=== PATIENT | female | born 1945 | race Two or more races ===

== ENCOUNTER → 2017-07-11 | Outpatient (CLI) | payer MEDICARE, MEDICAID ==
--- NOTE | 2017-07-11 15:27 | REP ---
Chest two views HISTORY: Dyspnea Comparison: 03/27/2007 The lungs are clear. The heart is upper limits of normal in size. The pulmonary vasculature is normal in appearance. Degenerative change is present in the thoracic spine. IMPRESSION: No acute disease. Signed by Gurmeet Cuadra MD 07/11/2017 03:18 P
== END ==
LOC: M LRY 14:22
PROVIDERS: ATTEND Nurse Practitioner Family
DX: R06.09 Other forms of dyspnea (principal)
CPT/HCPCS: 71020; 80048; 82948; 85025; 94640; G0463

== ENCOUNTER → 2017-07-11 | Outpatient (REF) | payer MEDICARE, MEDICAID ==
[2017-07-11 20:52] LABS: BASO % 0.4 % (0.0-1.0); EOS # 0.3 10^3/uL (0.0-0.50); IMMATURE GRANULOCYTE % 0.1 % (0-0); LYMPH # 1.9 10^3/uL (1.5-4.5); LYMPH % 24.4 % (24.0-44.0); MEAN CORPUSCULAR HEMOGLOBIN 32.4 pg (27.0-33.0); MEAN CORPUSCULAR VOLUME 95.2 fl (80.0-96.0); MONO # 0.7 10^3/uL (0.0-0.8); MONO % 9.1 % (0.0-5.0); NEUTROPHILS # 4.8 10^3/uL (1.8-7.7); PLATELET COUNT, AUTOMATED 283 10^3/uL (150-450); RED CELL DISTRIBUTION WIDTH 13.7 % (11.5-14.5); WHITE BLOOD COUNT 7.7 10^3/uL (4.0-10.0)
[2017-07-11 21:24] LABS: ANION GAP 6 MEQ/L (8-16); BLOOD UREA NITROGEN 14 MG/DL (7-18); CALCIUM LEVEL 9.1 MG/DL (8.8-10.2); CARBON DIOXIDE LEVEL 31 MEQ/L (21-32); CHLORIDE LEVEL 94 MEQ/L (98-107); CREATININE FOR GFR 0.67 MG/DL (0.55-1.02); GLOMERULAR FILTRATION RATE > 60.0 (>39); GLUCOSE, FASTING 92 MG/DL (83-110); POTASSIUM SERUM 4.5 MEQ/L (3.5-5.1); SODIUM LEVEL 131 MEQ/L (136-145)
== END ==
LOC: M SFHCLERA 15:35
PROVIDERS: ATTEND Nurse Practitioner Family
DX: R21 Rash and other nonspecific skin eruption (principal)

== ENCOUNTER → 2017-07-25 | Outpatient (REF) ==
[2017-07-25 10:32] LABS: MEAN CORPUSCULAR HEMOGLOBIN 32.2 pg (27.0-33.0); MEAN CORPUSCULAR HGB CONC 34.2 g/dl (32.0-36.5); MEAN CORPUSCULAR VOLUME 94.3 fl (80.0-96.0); PLATELET COUNT, AUTOMATED 307 10^3/uL (150-450); RED CELL DISTRIBUTION WIDTH 14.1 % (11.5-14.5); WHITE BLOOD COUNT 9.6 10^3/uL (4.0-10.0)
[2017-07-25 10:45] LABS: ANION GAP 10 MEQ/L (8-16); BLOOD UREA NITROGEN 38 MG/DL (7-18); CALCIUM LEVEL 8.3 MG/DL (8.8-10.2); CARBON DIOXIDE LEVEL 26 MEQ/L (21-32); CHLORIDE LEVEL 96 MEQ/L (98-107); CREATININE FOR GFR 0.94 MG/DL (0.55-1.02); GLOMERULAR FILTRATION RATE > 60.0 (>39); GLUCOSE, FASTING 113 MG/DL (83-110); POTASSIUM SERUM 4.6 MEQ/L (3.5-5.1); SODIUM LEVEL 132 MEQ/L (136-145)
== END ==
PROVIDERS: ATTEND Internal Medicine
DX: J18.9 Pneumonia, unspecified organism (principal)

== ENCOUNTER → 2017-07-26 | Outpatient (REF) ==
--- NOTE | 2017-07-26 18:40 | REP ---
CHEST, TWO VIEWS: Two views of the chest are performed and compared to prior studies, most recent of which is 07/12/2017. There is no acute infiltrate or pulmonary edema. The heart is not enlarged. Mediastinal silhouette is unchanged. There are degenerative changes of the spine. IMPRESSION: No evidence of acute infiltrate. Signed by Chip King MD 07/27/2017 08:27 P
== END ==
PROVIDERS: ATTEND Internal Medicine
DX: J18.9 Pneumonia, unspecified organism (principal)

== ENCOUNTER → 2017-07-27 | Outpatient (REF) ==
[2017-07-27 12:11] LABS: CALCIUM LEVEL 8.7 MG/DL (8.8-10.2); CREATININE FOR GFR 1.05 MG/DL (0.55-1.02); GLOMERULAR FILTRATION RATE 54.7 (>39); POTASSIUM SERUM 4.6 MEQ/L (3.5-5.1)
== END ==
PROVIDERS: ATTEND Internal Medicine
DX: I50.9 Heart failure, unspecified (principal)

== ENCOUNTER → 2017-08-02 | Outpatient (REF) | DX: I50.9 Heart failure, unspecified (principal); Z53.9 Procedure and treatment not carried out, unspecified reason ==

== ENCOUNTER 2021-03-28 07:21 | Inpatient (IN) | payer MEDICARE, MEDICAID ==
[~2021-03-28] VITALS: Ht 165.1 cm; Wt 101.8 kg
[2021-03-28] MEDS ORDERED: amLODIPine 5 MG TAB PO ONE (08:00)
[2021-03-28 08:17] LABS: HEMATOCRIT 35.6 % (36.0-47.0); HEMOGLOBIN 12.9 g/dl (12.0-15.5); MEAN CORPUSCULAR HEMOGLOBIN 33.2 pg (27.0-33.0); MEAN CORPUSCULAR HGB CONC 36.2 g/dl (32.0-36.5); MEAN CORPUSCULAR VOLUME 91.5 fl (80.0-96.0); PLATELET COUNT, AUTOMATED 281 10^3/uL (150-450); RED BLOOD COUNT 3.89 10^6/uL (4.00-5.40); WHITE BLOOD COUNT 8.5 10^3/uL (4.0-10.0)
[2021-03-28] MEDS ORDERED: NEOM1SUS14 OS (08:19)
[2021-03-28] MEDS ORDERED: ASPI81TA26 PO (08:19)
[2021-03-28] MEDS ORDERED: METO1TAB33 PO (08:19)
[2021-03-28] MEDS ORDERED: NYST1POW9 TOP (08:19)
[2021-03-28] MEDS ORDERED: MYRB50TA PO (08:19)
[2021-03-28] MEDS ORDERED: TOVI8TAB PO (08:19)
[2021-03-28] MEDS ORDERED: AMLO1TAB25 PO (08:19)
[2021-03-28] MEDS ORDERED: ROPI1TAB3 PO (08:19)
[2021-03-28] MEDS ORDERED: DEME300T12 PO (08:19)
[2021-03-28] MEDS ORDERED: VITMTA PO (08:19)
[2021-03-28] MEDS ORDERED: CARB1TAB20 PO (08:19)
[2021-03-28] MEDS ORDERED: SODI1TAB6 PO (08:19)
[2021-03-28] MEDS ORDERED: LOSA100T50 PO (08:19)
[2021-03-28] MEDS ORDERED: JANU100T PO (08:19)
[2021-03-28] MEDS ORDERED: XALA0.007 OU (08:19)
[2021-03-28] MEDS ORDERED: GLYB2.5T7 PO (08:19)
[2021-03-28] MEDS ORDERED: PRED10TA2 PO (08:19)
[2021-03-28] MEDS ORDERED: SYNT150T PO (08:19)
[2021-03-28] MEDS ORDERED: ACET1TAB55 PO (08:19)
[2021-03-28] MEDS ORDERED: COLA100C5 PO (08:19)
[2021-03-28] MEDS ORDERED: ZIPR60CA11 PO (08:19)
[2021-03-28] MEDS ORDERED: METF10004 PO (08:19)
[2021-03-28] MEDS ORDERED: FLOV50AE INH (08:19)
[2021-03-28] MEDS ORDERED: HOME MED LIST COMPLETE! XX SCH (08:25)
[2021-03-28 08:51] LABS: ACETAMINOPHEN LEVEL 5.1 UG/ML (10.0-30.0); ALBUMIN 3.1 GM/DL (3.2-5.2); ALT/SGPT 40 U/L (12-78); BILIRUBIN,DIRECT 0.2 MG/DL (0.0-0.2); BILIRUBIN,TOTAL 0.4 MG/DL (0.2-1.0); BLOOD UREA NITROGEN 11 MG/DL (7-18); CALCIUM LEVEL 8.6 MG/DL (8.8-10.2); CARBAMAZEPINE (TEGRETOL) LEVEL 6.4 UG/ML (4.0-10.0); CARBON DIOXIDE LEVEL 26 MEQ/L (21-32); CHLORIDE LEVEL 91 MEQ/L (98-107); CREATININE FOR GFR 0.73 MG/DL (0.55-1.30); ETHYL ALCOHOL (ETHANOL) 0.003 % (0.000-0.010); GLOMERULAR FILTRATION RATE > 60.0 (>39); GLUCOSE, FASTING 212 MG/DL (70-100); POTASSIUM SERUM 4.6 MEQ/L (3.5-5.1); RSV AMPLIFICATION NEGATIVE (NEGATIVE); SALICYLATE LEVEL < 1.7 MG/DL (5.0-30.0); SODIUM LEVEL 124 MEQ/L (136-145); TOTAL PROTEIN 6.7 GM/DL (6.4-8.2)
[2021-03-28 10:24] LABS: FREE T4 1.38 NG/DL (0.76-1.46)
[2021-03-28 10:41] LABS: AMPHETAMINES LEVEL URINE NEGATIVE (NEGATIVE); BARBITURATES URINE NEGATIVE (NEGATIVE); BENZODIAZEPINES URINE NEGATIVE (NEGATIVE); CANNABINOIDS URINE NEGATIVE (NEGATIVE); COCAINE METABOLITE URINE NEGATIVE (NEGATIVE); CREATININE,RANDOM URINE 32.1 MG/DL; METHADONE URINE NEGATIVE (NEGATIVE); OPIATES URINE NEGATIVE (NEGATIVE); PHENCYCLIDINE URINE NEGATIVE (NEGATIVE)
[2021-03-28 11:07] LABS: OSMOLALITY SERUM 260 MOSM/KG (280-301)
--- NOTE | 2021-03-28 13:37 | MHIPNPDOC ---
[facility] Progress Note Progress Note DATE OF SERVICE: 03/28/21 HISTORY: PSA contact regarding admission for this patient. 75-year-old female with a history of bipolar depression, who presented after reportedly attempting to slit wrists with a razor. No lacerations were found which patient attributes to being unable to pop the covers on her razor and access to blades directly. She told staff at her assisted living facility about this attempt and she was brought to the ER. Patient is on the extensive list of medications for heart disease, she is also on ziprasidone and Tegretol for management of her bipolar disorder. She had apparently stopped taking medications for a few days prior to this, which is resulted in elevated blood pressure. This responded to a one- time dose of amlodipine given by the ED, and she has been agreeable to take further medications moving forward. Reviewed hyponatremia with Dr. Crews, ED physician. Hyponatremia appears to be chronic, based upon osmolality and other urine labs is most likely related to ongoing administration of Tegretol. Focus of this admission should likely be on switching her Tegretol for a another a gent, which may be less prone to development of hyponatremia. Vital Signs Vital Signs Date Time Temp Pulse Resp B/P (MAP) Pulse Ox O2 Delivery O2 Flow Rate FiO2 03/28/21 13:20 96.8 75 20 170/77 (108) 94 Room Air Laboratory Data 24H Labs Laboratory Tests 2 03/28/21 07:51: Nucleated Red Blood Cells % (auto) 0.0, Urine Osmolality 358, Urine Random Creatinine 32.1, Urine Random Sodium 66, Anion Gap 7L, Glomerular Filtration Rate > 60.0, Osmolality 260L, Calcium Level 8.6L, Total Bilirubin 0.4, Direct Bilirubin 0.2, Aspartate Amino Transf (AST/SGOT) 29, Alanine Aminotransferase (ALT/SGPT) 40, Alkaline Phosphatase 99, Total Protein 6.7, Albumin 3.1L, Albumin/Globulin Ratio 0.9L, Thyroid Stimulating Hormone (TSH) 1.290, Free Thyroxine 1.38, Salicylates Level < 1.7L, Urine Opiates Screen NEGATIVE, Urine Methadone Screen NEGATIVE, Acetaminophen Level 5.1L, Urine Barbiturates Screen NEGATIVE, Carbamazepine (Tegretol) Level 6.4, Urine Phencyclidine Screen NEGATIVE, Urine Amphetamines Screen NEGATIVE, Urine Benzodiazepines Screen NEGATIVE, Urine Cocaine Metabolite Screen NEGATIVE, Urine Cannabinoids Screen NEGATIVE, Ethyl Alcohol Level 0.003, Coronavirus (COVID-19)(PCR) NEGATIVE, Influ selin Type A (RT-PCR) NEGATIVE, Influenza Type B (RT-PCR) NEGATIVE, Respiratory Syncytial Virus (PCR) NEGATIVE 03/28/21 12:39: Bedside Glucose (Misc Panel) 197H CBC/BMP Laboratory Tests 03/28/21 07:51 Current Medications Current Medications Medications (Trade) Dose Ordered Sig/Abigail Route PRN Reason Start Time Stop Time Status Last Admin Dose Admin Home Med (Home Med List Complete!) ASDIRECTED XX 03/28/21 08:25 03/28/21 08:25 DC Allergies Coded Allergies: Sulfa (Sulfonamide Antibiotics) (Verified Allergy, Mild, hives, 03/28/21) MADAN GORDON MD Mar 28, 2021 13:37
[2021-03-28] MEDS ORDERED: MOM 30ML SUSPENSION UDC PO PRN (14:15)
[2021-03-28] MEDS ORDERED: ACETAMINOPHEN TAB 650MG DOSE (2X325MG) PO PRN (14:15)
[2021-03-28] MEDS ORDERED: traZODone 50 MG TAB PO PRN (14:15)
[2021-03-28] MEDS ORDERED: MAALOX 30 ML SUSP *UDC PO PRN (14:15)
[2021-03-28 16:45] VITALS: BP 179/110
[2021-03-28] MEDS ORDERED: MAXITROL OPHTH SUSP 5 ML OS SCH (17:00)
[2021-03-28] MEDS: rOPINIRole 1MG TAB PO SCH (21:27)
[2021-03-28] MEDS: amLODIPine 5 MG TAB PO SCH (21:27)
[2021-03-28] MEDS: LATANOPROST 0.005% OPHTH SOLN 2.5 ML OU SCH (21:27)
[2021-03-28] MEDS: metFORMIN (GLUCOPHAGE) 1000 MG TABLET PO SCH (21:27)
[2021-03-28] MEDS: NYSTATIN 100,000 UNITS/GM TOPICAL PWD 15 GM TOP SCH (21:27)
[2021-03-28] MEDS: DOCUSATE SODIUM 100MG CAPSULE PO SCH (21:27)
[2021-03-28] MEDS: SODIUM CHLORIDE 1 GM TAB PO SCH (21:28)
[2021-03-28] MEDS: carBAMazepine 200MG TABLET PO SCH (21:28)
[2021-03-28] MEDS: ZIPRASIDONE 20MG CAPSULE (GEODON) PO SCH (21:28)
[2021-03-28] MEDS: carBAMazepine 100MG *1/2* TABLET PO SCH (21:28)
[2021-03-28] MEDS: ACETAMINOPHEN TAB 650MG DOSE (2X325MG) PO SCH (21:29)
[2021-03-28] MEDS: FLUTICASONE HFA 44 MCG 10.6GM INHALER (FLOVENT) INH SCH (21:29)
[2021-03-29 05:50] VITALS: BP 164/94
[2021-03-29] MEDS: LEVOTHYROXINE 150MCG TABLET (0.15MG) PO SCH (06:24)
[2021-03-29] MEDS: NYSTATIN 100,000 UNITS/GM TOPICAL PWD 15 GM TOP SCH ×2 (09:00→21:56)
[2021-03-29] MEDS ORDERED: METOPROLOL SUCC (TopROL XL) 100MG *XL* TAB PO SCH (09:00)
[2021-03-29] MEDS: carBAMazepine 100MG *1/2* TABLET PO SCH (09:39)
[2021-03-29] MEDS: SITagliptin 50 MG TAB (JANUVIA) PO SCH (09:39)
[2021-03-29] MEDS: predniSONE 10 MG TAB PO SCH (09:39)
[2021-03-29] MEDS: DOCUSATE SODIUM 100MG CAPSULE PO SCH ×2 (09:40→21:56)
[2021-03-29] MEDS: ASPIRIN 81MG ENTERIC TABLET PO SCH (09:40)
[2021-03-29] MEDS: MULTIVITAMINS/MINERALS THERAP 1 TAB PO SCH (09:40)
[2021-03-29] MEDS: LOSARTAN 50MG TABLET PO SCH (09:40)
[2021-03-29] MEDS: carBAMazepine 200MG TABLET PO SCH ×2 (09:41→21:59)
[2021-03-29] MEDS: amLODIPine 5 MG TAB PO SCH ×2 (09:41→21:56)
[2021-03-29] MEDS: SODIUM CHLORIDE 1 GM TAB PO SCH ×2 (09:44→18:07)
[2021-03-29] MEDS: FLUTICASONE HFA 44 MCG 10.6GM INHALER (FLOVENT) INH SCH ×2 (09:44→19:58)
[2021-03-29] MEDS: metFORMIN (GLUCOPHAGE) 1000 MG TABLET PO SCH ×2 (09:45→18:07)
[2021-03-29] MEDS: ZIPRASIDONE 20MG CAPSULE (GEODON) PO SCH ×2 (09:45→18:06)
--- NOTE | 2021-03-29 09:56 | HPEPDOC ---
[facility] Medical History & Physical Date of Admission Mar 28, 2021 Date of Service: Mar 29, 2021 Other Provider Derik Holland MD, psychiatry Attending Physician: CHITRA CHAHAL DO History and Physical CHIEF COMPLAINT: Bipolar depression HISTORY OF PRESENT ILLNESS: Patient is a 75-year-old female who was admitted into the inpatient mental health unit for a history of bipolar depression who was reportedly attempting to slit her wrist with a razor. No lacerations were found and the patient attributes that to be unable to pop her covers off her razor and axis plates directly. Patient told staff that her assisted living facility with this attempt and she was brought to the emergency department. Patient is on extensive list of medications for heart disease as well as ziprasidone and Tegretol for management of bipolar disorder. She apparently stopped taking medications for a few days prior to this which resulted in elevated blood pressure. Patient was found to have hyponatremia on initial laboratories in the emergency department however, the hyponatremia appears to be chronic in nature. Patient states that the patient has had 2 loose stools this morning that were brown and nonbloody. Patient does not complain of any other pain. Patient was having normal bowel movements prior today. Patient is otherwise doing well at this time. PAST MEDICAL HISTORY: 1. Diabetes mellitus. 2. Hypothyroidism. 3. Hypertension. 4. Hyperlipidemia 5. Bipolar disorder PAST SURGICAL HISTORY: 1. Cholecystectomy in the remote past. SOCIAL HISTORY: Patient does not smoke cigarettes and gave up drinking alcohol greater than 15 years ago. Patient does denies any illicit drug use. Patient lives at [facility] FAMILY HISTORY: Mother of renal failure according to chart review ALLERGIES: Please see below. REVIEW OF SYSTEMS: General: Patient denies fevers HEENT: Patient denies headaches Cardiovascular: Patient denies chest pain Respiratory: Patient denies shortness of breath, cough GI: Patient reports 2 loose stools earlier today but denies abdominal pain, nausea, or vomiting : Patient denies increased frequency or pain with urination Extremities: Patient denies swelling or pain in extremities Neurological: Patient denies numbness or tingling in legs Skin: Patient reports a new rash on her upper extremities which is itchy. Hematologic: Patient denies any easy bruising. Lymphatic: Patient denies any lumps lumps or bumps in neck, axilla, or groin HOME MEDICATIONS: Please see below. PHYSICAL EXAMINATION: VITAL SIGNS: Temperature 98.0, pulse 92, respiratory rate 20, blood pressure 155/81, pulse oximetry 93% on room air. General: Alert and oriented female patient who was laying in bed when I walked in the room. Patient did not appear to be in any acute distress. Patient did become anxious about taking her medications As she had not taken them today. HEENT: Normocephalic, atraumatic, moist mucous membranes. Neck: No lymphadenopathy or thyromegaly Cardiac: Regular rate and rhythm, no murmurs, normal S1, normal S2 Pulm: Clear to auscultation bilaterally. No wheezes, rhonchi, rales Abd: Nondistended, nontender to palpation, normal bowel sounds Ext: No edema bilateral lower extremities Skin. Patient has a papular rash that appears healed with excoriations on her upper extremities. LABORATORY DATA: See below. IMAGING: No imaging has been performed MICROBIOLOGY: Please see below. ASSESSMENT: Patient is a 75-year-old female with a history of bipolar depressive disorder who was brought to the emergency department after stating she was attempting to cut her wrist with a razor blade. Patient was found to be hyponatremic and was admitted into inpatient mental health unit as the possible cause of her chronic hyponatremia was thought to be Tegretol. . PLAN: 1. Bipolar depression. Continue treatment per psychiatry. Patient will need to be switched from Tegretol to a different agent as this is most likely the cause of her chronic hyponatremia. Management per psychiatry. 2. Hyponatremia. This appears chronic in nature. Patient will be given salt tablets and have a fluid restriction of 2000 cc/day. We will continue to check the patient's sodium level on a daily basis for the first few days and if this stabilizes, checks can be every other day during the patient's hospitalization. 3. Diarrhea. Patient had 2 episodes of loose stool today. We will continue to monitor this. This may be secondary to her not eating very much yesterday. 4. Rash. This appears to be a possible contact dermatitis or dry skin dermatitis. Hydrocortisone will be ordered. 5. Type 2 diabetes. Continue home medications. 6. Hypertension. Continue home medications. 7. Hyperlipidemia. Continue home medications. 8. Hypothyroidism. Continue home medications. 9. DVT prophylaxis: Early ambulation 10. CODE STATUS: Full code Disposition: Patient discharged per psychiatry. Hospitalist will follow for the first few days until sodium level stabilizes. Vital Signs Vital Signs Date Time Temp Pulse Resp B/P (MAP) Pulse Ox O2 Delivery O2 Flow Rate FiO2 03/29/21 05:50 98.0 92 20 164/94 (117) 03/28/21 16:45 93 Room Air Laboratory Data Labs 24H Laboratory Tests 2 03/28/21 12:39: Bedside Glucose (Misc Panel) 197H 03/29/21 02:30: Bedside Glucose (Misc Panel) 146H Home Medications Scheduled Acetaminophen (Acetaminophen) 325 Mg Tablet, 650 MG PO QHS Amlodipine Besylate (Amlodipine Besylate) 10 Mg Tablet, 5 MG PO BID Aspirin (Aspirin EC) 81 Mg Tablet.dr, 81 MG PO DAILY Carbamazepine (Carbamazepine) 200 Mg Tablet, 300 MG PO BID Demeclocycline HCl (Demeclocycline HCl) 300 Mg Tablet, 300 MG PO BID Docusate Sodium (Colace) 100 Mg Capsule, 100 MG PO BID @ 1700, 2000 Fesoterodine Fumarate (Toviaz) 8 Mg Tab.er.24h, 8 MG PO DAILY Fluticasone Propionate (Flovent Diskus) 50 Mcg Blst.w.dev, 1 PUFF INH BID Glyburide (Glyburide) 2.5 Mg Tablet, 2.5 MG PO DAILY Latanoprost (Xalatan) 0.005% 2.5ML Drops, 1 DROP OU QHS Levothyroxine Sodium (Synthroid) 150 Mcg Tablet, 150 MCG PO DAILY Losartan Potassium (Losartan Potassium) 100 Mg Tablet, 100 MG PO DAILY Metformin HCl (Metformin HCl) 1,000 Mg Tablet, 1,000 MG PO BID Metoprolol Succinate (Metoprolol Succinate) 100 Mg Tab.er.24h, 100 MG PO DAILY Mirabegron (Myrbetriq) 50 Mg Tab.er.24h, 50 MG PO QHS Multivitamins (Thera M Plus Tablet) 1 Each Tablet, 1 TAB PO DAILY Neomycin/Polymyxin B/Dexametha (Lgouxe-Utxsl-Yrzjfhah Eye Drop) 5 Ml Drops.susp, 1 DROP OS QID STOP MEDICATION END OF DAY ON 03/28/21 Nystatin (Nystatin Powder) 15 Gm Powder, 1 APPLIC TOP BID APPLY TO RASH ON GROIN AND UNDER BREASTS Prednisone (Prednisone) 10 Mg Tablet, 20 MG PO DAILY 20MG FOR TWO DAYS THEN 10MG FOR TWO DAYS Ropinirole HCl (Ropinirole HCl) 1 Mg Tablet, 1 MG PO QHS Sitagliptin Phosphate (Januvia) 100 Mg Tablet, 100 MG PO DAILY Sodium Chloride (Sodium Chloride) 1 Gm Tablet, 1 GM PO BIDWM Ziprasidone HCl (Ziprasidone HCl) 60 Mg Capsule, 60 MG PO BIDWM Allergies Coded Allergies: Sulfa (Sulfonamide Antibiotics) (Verified Allergy, Mild, hives, 03/28/21) A-FIB/CHADSVASC A-FIB History Current/History of A-Fib/PAF?: No CHITRA CHAHAL DO Mar 29, 2021 09:56
[2021-03-29] MEDS ORDERED: ANUSOL HC CREAM 30GM TOP PRN (10:00)
[2021-03-29 12:52] LABS: BLOOD UREA NITROGEN 12 MG/DL (7-18); CALCIUM LEVEL 8.8 MG/DL (8.8-10.2); CARBON DIOXIDE LEVEL 26 MEQ/L (21-32); CHLORIDE LEVEL 91 MEQ/L (98-107); CREATININE FOR GFR 0.83 MG/DL (0.55-1.30); GLOMERULAR FILTRATION RATE > 60.0 (>39); GLUCOSE, FASTING 121 MG/DL (70-100); POTASSIUM SERUM 4.6 MEQ/L (3.5-5.1); SODIUM LEVEL 125 MEQ/L (136-145)
[2021-03-29] MEDS ORDERED: carBAMazepine 200MG TABLET PO SCH (16:00)
--- NOTE | 2021-03-29 18:07 | MHHPEPDOC ---
General Date Of Admission: Mar 28, 2021 Legal Status: 9.39 Chief Complaint "I came in very depressed" History of Present Illness HISTORY OF THE PRESENT ILLNESS: Patient is a 75 -year-old Other, female, who has a past hisoty of bipolar disoder (reportedly diagnosed in the ), depression who presents on a 9.39 from her [facility] after she reports (confirmed on chart review) she wanted to kill herself by cutting her wrists with razor blades, but could not remove the safety covers. Reports struggling with worsening suicidal thoughts for the last few weeks, due to having to socialize in her [facility], states that "I got used to used to being alone", it is been so hard to see the new people there "as most of the people there have already ". On interview she is very labile, tearful, constricted, reports chronic low mood, anhedonia, low energy, poor concentration, lack of sleep, hopelessness, helplessness, worthlessness and passive suicidal thoughts which are vague. States she planned the day before getting razor blades to end her life, " I thought this was it". Reports she has had depression her whole life and has had several past attempts, reports at age 15 she tried to drink "Witch Concetta as a suicide attempt". States she feels her current medications are not helping her adequately her stressor for her worsening mood, was a lack of socialization during COVID with some of the friends who had passed and having to go to medical appointments on her own which has been lonely. Does report Kulwinder has helped with her moods. She was educated about hyponatremia and plan to decrease her carbamazepine, initially she was hesitant with this plan due to concerns " I am afraid things will get worse because the carbamazepine really helps my depression". Denies jan or ever having periods where she was not sleeping for days, but does describe periods of highs and lows in her life, although mostly depressed, with the highest being "periods where I was overly silly and it was normal". Denies any drug use. Patient is alert, oriented, coherent, mentation intact, does have some delusions guilt. Denies any homicidal ideations. Psychiatric Review of Systems Depression (2 or more weeks): depressed mood, anhedonia, insomnia/hypersomnia (fragmented sleep), feelings of excess/guilt, feelings of worthlesness, decreased energy, difficulty concentrating, psychomotor changes, suicidal thoughts Jan (4 or more days of): denies Psychosis: delusions (guilty) PTSD: denies Anxiety: gen/non-specific anxiety, situational anxiety, stressor related anxiety Anxiety/ 6 months or more of: difficulty concentrating, sleep disturbance Past Psychiatric History Previous Psychiatric Diagnosis: bipolar, Major depressive disorder Previous Psychiatric Admissions: >10, ~3x at [place] in, last [facility] January 2008, [place] [facility] Suicide Attempts: multiple reported Psychiatric Follow-up: [facility] (annie Farley) Psychiatric medications: multiple past antipsychotics, antidepressants, anti anxiety, arrive on carbamazepin 300 mg BID, Geodon 60 mg BID Past Medical History Medical Problems hypothyroidism, DM, glaucoma Head Injury: No Seizures: No Hospitalizations: Yes Family Medical/Psychiatric HX Medical Problems unclear Addiction History denies Social History Childhood: Grew up in [place], 7 siblings, 3rd oldest, Abuse/Trauma: Denies any Current Living Situation: [facility] Education: grade 10, says went back and achieved GED, 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 Employment: Retired Social Support: few Legal: Denies Marital: not Mental Status Examination General Appearance: unkempt, hospital scubs/clothing, other (Tattoo R wrist, bruises) Build: overweight Demeanor: withdrawn Eye Contact: poor Activity: anxious Behavior: cooperative, loss of interests, anhedonia, withdrawn Speech: clear, slow, low in volume, non-spontaneous Mood: depressed Mood very depressed Affect: constricted, labile, other (tearful) Thought Process: logical/linear Thought Content (Delusions): other (delusions of guilt) Thought Content (Other): coherent Thought Content (Aggressive): none reported Perception (Hallucinations): none reported Perception (Other): none reported Cognition (Impairment of): none reported Oriented: Awake, Alert, Oriented times three Insight: fair Judgment: Poor Psychosis: Denies Diagnoses Bipolar I disorder per history R/O MDD, Persistent depressive disorder, neurocognitive disorder A-FIB/CHADSVASC A-FIB History Current/History of A-Fib/PAF?: No Current PO Anticoag Therapy: No Age/Risk Factor Scoring CHADSVASC: CHADSVASC Response (Comments) Value Age Risk Factor Age 65-74 years old 1 Gender Risk Factor Female 1 Hx of CHF No 0 Hx of HTN Yes 1 Hx of Stroke/TIA/or VTE No 0 Hx of Diabetes Yes 1 Hx of Vascular Disease No 0 Total 4 Treatment Treatment ordered: NONE Reason Anticoagulant not given: Other (defer to hospitalist team) Other reason anticoagulant not: deferred to hospitalist team Assessment Patient is a 75-year-old woman who presents for [facility] after reporting suicidal ideation with plan and interrupted attempt to cut wrists with razor blades. Reports lifelong history of depression and bipolar disorder diagnosed in the 1980s. Also presented medically with hyponatremia in the 120s coordination of care was obtained with hospitalist team, to fluid restrict, provide salt tablets monitor, metabolic profile every 2 days until sodium stabilizes patient did not appear to be delirious, or psychotic on interv iew. Plan per psychiatry team to slowly taper off carbamazepine as hyponatremia likely result of side effects of carbamazepine. Patient in agreement to stabilize depression, sent for safety and work with treatment team for safety planning. Initial Treatment Plan 1. Patient was admitted on a [9.39] status. 2. Complete history was obtained. 3. With patients permission, family will be contacted and database will be expanded. 4. Patients medication regimen will be reviewed and changed accordingly. 5. Patient will be provided with protected environment. 6. Patient will be treated with individual, group, and milieu therapies. 7. Patient will receive supportive psych-education. 8. Discharge planning will commence immediately. 9. Outpatient follow-up treatment will be strongly recommended. 10. The initial treatment plan will focus initially on: * Depression. * Risk for suicide. ESTIMATED LENGTH OF STAY: - DAYS. TIME SPENT COUNSELING AND COORDINATING INITIAL CARE: minutes. Tobacco Cessation Screen If Patient is a Smoker no Tobacco Cessation Tx Ordered?: Yes Complete/Results docum. Vital Signs Vital Signs Date Time Temp Pulse Resp B/P (MAP) Pulse Ox O2 Delivery O2 Flow Rate FiO2 03/29/21 09:40 155/81 03/29/21 05:50 98.0 92 20 03/28/21 16:45 93 Room Air Laboratory Data 24H Labs Laboratory Tests 2 03/29/21 02:30: Bedside Glucose (Misc Panel) 146H 03/29/21 11:35: Anion Gap 8, Glomerular Filtration Rate > 60.0, Calcium Level 8.8 CBC/BMP Laboratory Tests 03/29/21 11:35 Medications Scheduled Acetaminophen (Acetaminophen) 325 Mg Tablet, 650 MG PO QHS, (Reported) Amlodipine Besylate (Amlodipine Besylate) 10 Mg Tablet, 5 MG PO BID, (Reported) Aspirin (Aspirin EC) 81 Mg Tablet.dr, 81 MG PO DAILY, (Reported) Carbamazepine (Carbamazepine) 200 Mg Tablet, 300 MG PO BID, (Reported) Demeclocycline HCl (Demeclocycline HCl) 300 Mg Tablet, 300 MG PO BID, (Reported) Docusate Sodium (Colace) 100 Mg Capsule, 100 MG PO BID, (Reported) @ 1700, 2000 Fesoterodine Fumarate (Toviaz) 8 Mg Tab.er.24h, 8 MG PO DAILY, (Reported) Fluticasone Propionate (Flovent Diskus) 50 Mcg Blst.w.dev, 1 PUFF INH BID, (Reported) Glyburide (Glyburide) 2.5 Mg Tablet, 2.5 MG PO DAILY, (Reported) Latanoprost (Xalatan) 0.005% 2.5ML Drops, 1 DROP OU QHS, (Reported) Levothyroxine Sodium (Synthroid) 150 Mcg Tablet, 150 MCG PO DAILY, (Reported) Losartan Potassium (Losartan Potassium) 100 Mg Tablet, 100 MG PO DAILY, (Reported) Metformin HCl (Metformin HCl) 1,000 Mg Tablet, 1,000 MG PO BID, (Reported) Metoprolol Succinate (Metoprolol Succinate) 100 Mg Tab.er.24h, 100 MG PO DAILY, (Reported) Mirabegron (Myrbetriq) 50 Mg Tab.er.24h, 50 MG PO QHS, (Reported) Multivitamins (Thera M Plus Tablet) 1 Each Tablet, 1 TAB PO DAILY, (Reported) Neomycin/Polymyxin B/Dexametha (Bblzvd-Okrro-Thtcvtek Eye Drop) 5 Ml Drops.susp, 1 DROP OS QID, (Reported) STOP MEDICATION END OF DAY ON 03/28/21 Nystatin (Nystatin Powder) 15 Gm Powder, 1 APPLIC TOP BID, (Reported) APPLY TO RASH ON GROIN AND UNDER BREASTS Prednisone (Prednisone) 10 Mg Tablet, 20 MG PO DAILY, (Reported) 20MG FOR TWO DAYS THEN 10MG FOR TWO DAYS Ropinirole HCl (Ropinirole HCl) 1 Mg Tablet, 1 MG PO QHS, (Reported) Sitagliptin Phosphate (Januvia) 100 Mg Tablet, 100 MG PO DAILY, (Reported) Sodium Chloride (Sodium Chloride) 1 Gm Tablet, 1 GM PO BIDWM, (Reported) Ziprasidone HCl (Ziprasidone HCl) 60 Mg Capsule, 60 MG PO BIDWM, (Reported) Allergies Coded Allergies: Sulfa (Sulfonamide Antibiotics) (Verified Allergy, Mild, hives, 03/28/21) YAHAIRA KENNEDY MD Mar 29, 2021 18:07
[2021-03-29 19:24] VITALS: BP 150/83
[2021-03-29] MEDS: rOPINIRole 1MG TAB PO SCH (21:56)
[2021-03-29] MEDS: LATANOPROST 0.005% OPHTH SOLN 2.5 ML OU SCH (21:56)
[2021-03-29] MEDS: ACETAMINOPHEN TAB 650MG DOSE (2X325MG) PO SCH (21:56)
[2021-03-30] MEDS: LEVOTHYROXINE 150MCG TABLET (0.15MG) PO SCH ×2 (05:43→05:55)
[2021-03-30 06:34] VITALS: BP 149/69
[2021-03-30 07:07] LABS: BLOOD UREA NITROGEN 14 MG/DL (7-18); CALCIUM LEVEL 8.4 MG/DL (8.8-10.2); CARBON DIOXIDE LEVEL 27 MEQ/L (21-32); CHLORIDE LEVEL 96 MEQ/L (98-107); CREATININE FOR GFR 0.71 MG/DL (0.55-1.30); GLOMERULAR FILTRATION RATE > 60.0 (>39); GLUCOSE, FASTING 172 MG/DL (70-100); POTASSIUM SERUM 4.3 MEQ/L (3.5-5.1); SODIUM LEVEL 129 MEQ/L (136-145)
[2021-03-30] MEDS: ZIPRASIDONE 20MG CAPSULE (GEODON) PO SCH ×2 (11:59→18:40)
[2021-03-30] MEDS: metFORMIN (GLUCOPHAGE) 1000 MG TABLET PO SCH ×2 (12:00→18:40)
[2021-03-30] MEDS: FLUTICASONE HFA 44 MCG 10.6GM INHALER (FLOVENT) INH SCH ×2 (12:01→20:54)
[2021-03-30] MEDS: SODIUM CHLORIDE 1 GM TAB PO SCH ×2 (12:01→18:39)
[2021-03-30] MEDS: DOCUSATE SODIUM 100MG CAPSULE PO SCH ×2 (12:02→20:55)
[2021-03-30] MEDS: LOSARTAN 50MG TABLET PO SCH (12:02)
[2021-03-30] MEDS: predniSONE 10 MG TAB PO SCH (12:03)
[2021-03-30] MEDS: ASPIRIN 81MG ENTERIC TABLET PO SCH (12:03)
[2021-03-30] MEDS: SITagliptin 50 MG TAB (JANUVIA) PO SCH (12:04)
[2021-03-30] MEDS: carBAMazepine 200MG TABLET PO SCH (12:08)
[2021-03-30] MEDS: MULTIVITAMINS/MINERALS THERAP 1 TAB PO SCH (12:08)
[2021-03-30] MEDS: NYSTATIN 100,000 UNITS/GM TOPICAL PWD 15 GM TOP SCH ×2 (12:10→20:54)
[2021-03-30] MEDS ORDERED: **hydrALAZINE HCL** 25 MG TAB PO ONE (13:00)
[2021-03-30 18:24] VITALS: BP 132/68
--- NOTE | 2021-03-30 18:26 | MHIPNPDOC ---
[facility] Progress Note Progress Note DATE OF SERVICE: 03/30/21 HISTORY: Patient is a 75 -year-old Other, female, who has a past hisoty of bipolar disoder (reportedly diagnosed in the ), depression who presents on a 9.39 from her [facility] after she reports (confirmed on chart review) she wanted to kill herself by cutting her wrists with razor blades, but could not remove the safety covers. Reports struggling with worsening suicidal thoughts for the last few weeks, due to having to socialize in her [facility], states that "I got used to used to being alone", it is been so hard to see the new people there "as most of the people there have already ". On interview she is very labile, tearful, constricted, reports chronic low mood, anhedonia, low energy, poor concentration, lack of sleep, hopelessness, helplessness, worthlessness and passive suicidal thoughts which are vague. States she planned the day before getting razor blades to end her life, " I thought this was it". Reports she has had depression her whole life and has had several past attempts, reports at age 15 she tried to drink "Witch Concetta as a suicide attempt". States she feels her current medications are not helping her adequately her stressor for her worsening mood, was a lack of socialization during COVID with some of the friends who had passed and having to go to medical appointments on her own which has been lonely. Does report Kulwinder has helped with her moods. She was educated about hyponatremia and plan to decrease her carbamazepine, initially aileen sanchez was hesitant with this plan due to concerns " I am afraid things will get worse because the carbamazepine really helps my depression". Denies jan or ever having periods where she was not sleeping for days, but does describe periods of highs and lows in her life, although mostly depressed, with the highest being "periods where I was overly silly and it was normal". Denies any drug use. Patient is alert, oriented, coherent, mentation intact, does have some delusions guilt. Denies any homicidal ideations. Interval: Patient was seen in her room, lying in bed with nursing at bedside. Endorsed high anxiety since tapering down her carpamazepine, vitals re-asses and wnl at 12:02 per chart review, pulse ox was hovering around 92-93, reports hx COPD. Endorsed severe depression and anxiety symptoms, stating when asked about suicidality "I don't know", appeared to be having an anxiety attack, lorazepam 0.5 q8H ordered, but patient has not been taking. Discussed alternative medications for mood stabilization including lamictal, patient was hesitant, but will consider, has concerns for weight gain. Carbamazepine titrated down to 100 mg po BID due to hyponatremia. VITAL SIGNS: See below. NEW TEST RESULTS: Na trended up to 129 CURRENT MEDICATIONS: See below. MENTAL STATUS EXAMINATION: General Appearance: unkempt, hospital scubs/clothing, other (Tattoo R wrist, bruises), avoidant eye contact Build: overweight Demeanor: withdrawn Eye Contact: poor Activity: anxious Behavior: cooperative, loss of interests, anhedonia, withdrawn Speech: clear, slow, low in volume, non-spontaneous, thought blocking Mood: depressed Mood very depressed Affect: constricted, labile, tearful Thought Process: logical/linear Thought Content (Delusions): other (delusions of guilt) Thought Content (Other): coherent, vague suicidal ideations Thought Content (Aggressive): none reported Perception (Hallucinations): none reported Perception (Other): none reported Cognition (Impairment of): none reported, unable to assess today due to high anxiety and limited cooperation with questioning Oriented: A/ox3 Insight: fair, improving Judgment: Poor Psychosis: Denies DIAGNOSES: 1. Bipolar I disorder per history 2. R/O MDD, Persistent depressive disorder, neurocognitive disorder ASSESSMENT: Anxiety attack. Continues to be severely depressed, ambivalent about returning to [facility] at times, at other times worried won't be able to return. MANAGEMENT PLAN: Was seen by medicine for elevated BP in the AM, which stabilized. Continue ziprasidone 60 mg BID, continue carbamazepine taper for hyponatremia side effect, education about alternative mood stabilizer, patient considering, started prn lorazepam 0.5 mg prn for breakthrough anxiety. Continue coordination or care for return to [facility] with discharge planners. TIME SPENT: 30 minutes. Vital Signs Vital Signs Date Time Temp Pulse Resp B/P (MAP) Pulse Ox O2 Delivery O2 Flow Rate FiO2 03/30/21 12:02 149/69 03/30/21 06:34 96.9 77 20 93 Room Air Laboratory Data 24H Labs Laboratory Tests 2 03/30/21 06:19: Anion Gap 6L, Glomerular Filtration Rate > 60.0, Calcium Level 8.4L CBC/BMP Laboratory Tests 03/30/21 06:19 Current Medications Current Medications Medications (Trade) Dose Ordered Sig/Abigail Route PRN Reason Start Time Stop Time Status Last Admin Dose Admin Acetaminophen (Tylenol Tab) 650 mg Q6HP PRN PO HEADACHE or MILD DISCOMFORT 03/28/21 14:15 Acetaminophen (Tylenol Tab) 650 mg QHS PO 03/28/21 21:00 03/29/21 21:56 Al Hydrox/Mg Hydrox/Simethicone (Mylanta) 30 ml Q4HP PRN PO HEARTBURN/INDIGESTION 03/28/21 14:15 Amlodipine Besylate (Norvasc) 5 mg BID PO 03/28/21 21:00 03/30/21 12:13 DC 03/29/21 21:56 Amlodipine Besylate (Norvasc) 5 mg BIDWM PO 03/30/21 18:00 Aspirin (Ecotrin) 81 mg DAILY PO 03/29/21 09:00 03/30/21 12:03 Carbamazepine (TEGretol) 100 mg BID PO 03/28/21 21:00 03/29/21 14:59 DC 03/29/21 09:39 Carbamazepine (TEGretol) 100 mg BID PO 03/30/21 21:00 Carbamazepine (TEGretol) 200 mg BID PO 03/28/21 21:00 03/29/21 14:59 DC 03/29/21 09:41 Carbamazepine (TEGretol) 200 mg BID PO 03/29/21 21:00 03/30/21 13:53 DC 03/30/21 12:08 Carbamazepine (TEGretol) 200 mg TID PO 03/29/21 16:00 03/29/21 15:03 DC Docusate Sodium (Colace) 100 mg BID PO 03/28/21 21:00 03/30/21 12:02 Fluticasone Propionate (Flovent Hfa 44 Mcg) 2 puff RBID INH 03/28/21 20:00 03/30/21 12:01 Glyburide (Diabeta, Micronase) 2.5 mg DAILY@0800 PO 03/29/21 08:00 03/30/21 11:59 Home Med (Home Med List Complete!) ASDIRECTED XX 03/28/21 08:25 03/28/21 08:25 DC Hydrocortisone (Proctosol Hc) Apply to arms BID PRN TOP ITCHING 03/29/21 10:00 Latanoprost (Xalatan 0.005% Op Soln) 1 drop QHS OU 03/28/21 21:00 03/29/21 21:56 Levothyroxine Sodium (Synthroid) 150 mcg DAILY@0600 PO 03/29/21 06:00 03/29/21 06:24 Lorazepam (Ativan) 0.5 mg Q8HP PRN PO SEVERE ANXIETY 03/30/21 13:50 Losartan Potassium (Cozaar) 100 mg DAILY PO 03/29/21 09:00 03/30/21 12:02 Magnesium Hydroxide (Milk Of Magnesia) 30 ml DAILYPRN PRN PO CONSTIPATION 03/28/21 14:15 Metformin HCl (Glucophage) 1,000 mg BIDWM PO 03/28/21 18:00 03/30/21 12:00 Metoprolol Succinate (TopROL XL) 100 mg DAILY PO 03/29/21 09:00 03/30/21 12:29 DC 03/29/21 09:41 Metoprolol Succinate (TopROL XL) 100 mg DAILY@0800 PO 03/31/21 08:00 Multivitamins (Theragram-M) 1 tab DAILY PO 03/29/21 09:00 03/30/21 12:08 Neomycin/ Polymyxin/ Dexamethasone (Maxitrol) 1 drop QID OS 03/28/21 17:00 03/28/21 16:46 DC Nystatin (Mycostatin Powder, Nystop) 1 dose BID TOP 03/28/21 21:00 03/30/21 12:10 Oxybutynin Chloride (Ditropan Xl) 5 mg QHS PO 03/30/21 21:00 Prednisone (Deltasone) 10 mg Taper DAILY PO 03/29/21 09:00 04/01/21 08:59 03/30/21 12:03 Ropinirole HCl (Requip) 1 mg QHS PO 03/28/21 21:00 03/29/21 21:56 Sitagliptin Phosphate (Januvia) 100 mg DAILY PO 03/29/21 09:00 03/30/21 12:04 Sodium Chloride (Sodium Chloride) 1 gm BIDWM PO 03/28/21 18:00 03/30/21 12:01 Trazodone HCl (Desyrel) 50 mg QHSP PRN PO INSOMNIA 03/28/21 14:15 Ziprasidone (Geodon) 60 mg BIDWM PO 03/28/21 18:00 03/30/21 11:59 Allergies Coded Allergies: Sulfa (Sulfonamide Antibiotics) (Verified Allergy, Mild, hives, 03/28/21) YAHAIRA KENNEDY MD Mar 30, 2021 18:26
[2021-03-30] MEDS: amLODIPine 5 MG TAB PO SCH (18:40)
--- NOTE | 2021-03-30 20:01 | ECGEPIP ---
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
[2021-03-30] MEDS: carBAMazepine 100MG *1/2* TABLET PO SCH (20:54)
[2021-03-30] MEDS: LATANOPROST 0.005% OPHTH SOLN 2.5 ML OU SCH (20:54)
[2021-03-30] MEDS: oxyBUTYnin *DITROPAN XL* 5 MG TABCR PO SCH (20:55)
[2021-03-30] MEDS: rOPINIRole 1MG TAB PO SCH (20:55)
[2021-03-30] MEDS: ACETAMINOPHEN TAB 650MG DOSE (2X325MG) PO SCH (20:55)
[2021-03-31] MEDS: LEVOTHYROXINE 150MCG TABLET (0.15MG) PO SCH (06:00)
[2021-03-31 07:06] VITALS: BP 170/100
[2021-03-31 07:56] LABS: BLOOD UREA NITROGEN 10 MG/DL (7-18); CALCIUM LEVEL 8.7 MG/DL (8.8-10.2); CARBON DIOXIDE LEVEL 26 MEQ/L (21-32); CHLORIDE LEVEL 99 MEQ/L (98-107); CREATININE FOR GFR 0.75 MG/DL (0.55-1.30); GLOMERULAR FILTRATION RATE > 60.0 (>39); GLUCOSE, FASTING 181 MG/DL (70-100); POTASSIUM SERUM 4.3 MEQ/L (3.5-5.1); SODIUM LEVEL 131 MEQ/L (136-145)
[2021-03-31] MEDS: FLUTICASONE HFA 44 MCG 10.6GM INHALER (FLOVENT) INH SCH ×2 (08:34→21:18)
[2021-03-31] MEDS: amLODIPine 5 MG TAB PO SCH ×2 (08:35→18:09)
[2021-03-31] MEDS: metFORMIN (GLUCOPHAGE) 1000 MG TABLET PO SCH ×2 (08:36→18:08)
[2021-03-31] MEDS: ZIPRASIDONE 20MG CAPSULE (GEODON) PO SCH ×2 (08:36→18:08)
[2021-03-31] MEDS: SODIUM CHLORIDE 1 GM TAB PO SCH ×2 (08:37→18:08)
[2021-03-31] MEDS: METOPROLOL SUCC (TopROL XL) 100MG *XL* TAB PO SCH (08:38)
[2021-03-31] MEDS: NYSTATIN 100,000 UNITS/GM TOPICAL PWD 15 GM TOP SCH ×4 (09:00→21:17)
[2021-03-31] MEDS: SITagliptin 50 MG TAB (JANUVIA) PO SCH (09:11)
[2021-03-31] MEDS: MULTIVITAMINS/MINERALS THERAP 1 TAB PO SCH (09:12)
[2021-03-31] MEDS: ASPIRIN 81MG ENTERIC TABLET PO SCH (09:12)
[2021-03-31] MEDS: LOSARTAN 50MG TABLET PO SCH (09:13)
[2021-03-31] MEDS: DOCUSATE SODIUM 100MG CAPSULE PO SCH ×2 (09:13→21:17)
[2021-03-31] MEDS: predniSONE 10 MG TAB PO SCH (09:14)
[2021-03-31] MEDS: carBAMazepine 100MG *1/2* TABLET PO SCH (09:14)
[2021-03-31 12:03] VITALS: BP 142/90
--- NOTE | 2021-03-31 12:56 | MHIPNPDOC ---
[facility] Progress Note Progress Note DATE OF SERVICE: 03/31/21 HISTORY: Patient is a 75 -year-old Other, female, who has a past hisoty of bipolar disoder (reportedly diagnosed in the ), depression who presents on a 9.39 from her [facility] after she reports (confirmed on chart review) she wanted to kill herself by cutting her wrists with razor blades, but could not remove the safety covers. Reports struggling with worsening suicidal thoughts for the last few weeks, due to having to socialize in her senior care, states that "I got used to used to being alone", it is been so hard to see the new people there "as most of the people there have already ". On interview she is very labile, tearful, constricted, reports chronic low mood, anhedonia, low energy, poor concentration, lack of sleep, hopelessness, helplessness, worthlessness and passive suicidal thoughts which are vague. States she planned the day before getting razor blades to end her life, " I thought this was it". Reports she has had depression her whole life and has had several past attempts, reports at age 15 she tried to drink "Witch Concetta as a suicide attempt". States she feels her current medications are not helping her adequately her stressor for her worsening mood, was a lack of socialization during COVID with some of the friends who had passed and having to go to medical appointments on her own which has been lonely. Does report Kulwinder has helped with her moods. She was educated about hyponatremia and plan to decrease her carbamazepine, initially aileen sanchez was hesitant with this plan due to concerns " I am afraid things will get worse because the carbamazepine really helps my depression". Denies jan or ever having periods where she was not sleeping for days, but does describe periods of highs and lows in her life, although mostly depressed, with the highest being "periods where I was overly silly and it was normal". Denies any drug use. Patient is alert, oriented, coherent, mentation intact, does have some delusions guilt. Denies any homicidal ideations. Interval: Charts reviewed, sodium continues to trend up, blood pressure only mildly elevated, patient in no acute distress, no acute physical complaints. Continues to have concerns that she will not be able to return to her [facility], despite supportive interaction and reassurance. States "why would they take me back, they do not want me back", despite multiple attempts to explain the situation. She continues to be tearful and labile but less so than previous days despite tapering down her carbamazepine. Plan to continue tapering down her carbamazepine. Denies AVH. VITAL SIGNS: See below. NEW TEST RESULTS: Na trended up to 131 CURRENT MEDICATIONS: See below. MENTAL STATUS EXAMINATION: General Appearance: unkempt, hospital scubs/clothing, other (Tattoo R wrist, bruises), avoidant eye contact Build: overweight Demeanor: withdrawn Eye Contact: poor Activity: anxious Behavior: cooperative, loss of interests, anhedonia, withdrawn Speech: clear, slow, low in volume, non-spontaneous, thought blocking Mood: depressed Mood Still very depressed Affect: constricted, labile, tearful, but less so than previous days Thought Process: logical/linear Thought Content (Delusions): other (delusions of guilt) Thought Content (Other): coherent, vague suicidal ideations Thought Content (Aggressive): none reported Perception (Hallucinations): none reported Perception (Other): none reported Cognition (Impairment of): none reported, unable to assess today due to high anxiety and limited cooperation with questioning Oriented: A/ox3 Insight: fair, improving Judgment: Poor Psychosis: Denies DIAGNOSES: 1. Bipolar I disorder, depressive episode 2. R/O MDD, Persistent depressive disorder, neurocognitive disorder ASSESSMENT: Severely depressed state, relatively unchanged from previous days despite taper down of carbamazepine, is now worried about not being able to return to [facility], with delusions of guilt. MANAGEMENT PLAN: Blood pressure is unremarkable apart from mild elevation. continue ziprasidone 60 mg BID, tapered down carbamazepine 250 mg twice daily, patient agreeable to starting low-dose Depakote possibly tomorrow, started prn lorazepam 0.5 mg prn for breakthrough anxiety. Continue coordination or care for return to [facility] with discharge planners. Medicated with nursing to ensure reassessment of blood pressure, as it was elevated previous days. TIME SPENT: 30 minutes. Vital Signs Vital Signs Date Time Temp Pulse Resp B/P (MAP) Pulse Ox O2 Delivery O2 Flow Rate FiO2 03/31/21 12:03 142/90 (107) 03/31/21 08:38 74 03/31/21 07:06 98.0 16 96 Room Air Laboratory Data 24H Labs Laboratory Tests 2 03/31/21 07:21: Anion Gap 6L, Glomerular Filtration Rate > 60.0, Calcium Level 8.7L CBC/BMP Laboratory Tests 03/31/21 07:21 Current Medications Current Medications Medications (Trade) Dose Ordered Sig/Abigail Route PRN Reason Start Time Stop Time Status Last Admin Dose Admin Acetaminophen (Tylenol Tab) 650 mg Q6HP PRN PO HEADACHE or MILD DISCOMFORT 03/28/21 14:15 Acetaminophen (Tylenol Tab) 650 mg QHS PO 03/28/21 21:00 03/30/21 20:55 Al Hydrox/Mg Hydrox/Simethicone (Mylanta) 30 ml Q4HP PRN PO HEARTBURN/INDIGESTION 03/28/21 14:15 Amlodipine Besylate (Norvasc) 5 mg BID PO 03/28/21 21:00 03/30/21 12:13 DC 03/29/21 21:56 Amlodipine Besylate (Norvasc) 5 mg BIDWM PO 03/30/21 18:00 03/31/21 08:35 Aspirin (Ecotrin) 81 mg DAILY PO 03/29/21 09:00 03/31/21 09:12 Carbamazepine (TEGretol) 100 mg BID PO 03/28/21 21:00 03/29/21 14:59 DC 03/29/21 09:39 Carbamazepine (TEGretol) 100 mg BID PO 03/30/21 21:00 03/31/21 09:14 Carbamazepine (TEGretol) 200 mg BID PO 03/28/21 21:00 03/29/21 14:59 DC 03/29/21 09:41 Carbamazepine (TEGretol) 200 mg BID PO 03/29/21 21:00 03/30/21 13:53 DC 03/30/21 12:08 Carbamazepine (TEGretol) 200 mg TID PO 03/29/21 16:00 03/29/21 15:03 DC Docusate Sodium (Colace) 100 mg BID PO 03/28/21 21:00 03/31/21 09:13 Fluticasone Propionate (Flovent Hfa 44 Mcg) 2 puff RBID INH 03/28/21 20:00 03/31/21 08:34 Glyburide (Diabeta, Micronase) 2.5 mg DAILY@0800 PO 03/29/21 08:00 03/31/21 08:35 Home Med (Home Med List Complete!) ASDIRECTED XX 03/28/21 08:25 03/28/21 08:25 DC Hydrocortisone (Proctosol Hc) Apply to arms BID PRN TOP ITCHING 03/29/21 10:00 Latanoprost (Xalatan 0.005% Op Soln) 1 drop QHS OU 03/28/21 21:00 03/30/21 20:54 Levothyroxine Sodium (Synthroid) 150 mcg DAILY@0600 PO 03/29/21 06:00 03/31/21 06:00 Lorazepam (Ativan) 0.5 mg Q8HP PRN PO SEVERE ANXIETY 03/30/21 13:50 Losartan Potassium (Cozaar) 100 mg DAILY PO 03/29/21 09:00 03/31/21 09:13 Magnesium Hydroxide (Milk Of Magnesia) 30 ml DAILYPRN PRN PO CONSTIPATION 03/28/21 14:15 Metformin HCl (Glucophage) 1,000 mg BIDWM PO 03/28/21 18:00 03/31/21 08:36 Metoprolol Succinate (TopROL XL) 100 mg DAILY PO 03/29/21 09:00 03/30/21 12:29 DC 03/29/21 09:41 Metoprolol Succinate (TopROL XL) 100 mg DAILY@0800 PO 03/31/21 08:00 03/31/21 08:38 Multivitamins (Theragram-M) 1 tab DAILY PO 03/29/21 09:00 03/31/21 09:12 Neomycin/ Polymyxin/ Dexamethasone (Maxitrol) 1 drop QID OS 03/28/21 17:00 03/28/21 16:46 DC Nystatin (Mycostatin Powder, Nystop) 1 dose BID TOP 03/28/21 21:00 03/30/21 20:54 Oxybutynin Chloride (Ditropan Xl) 5 mg QHS PO 03/30/21 21:00 03/30/21 20:55 Prednisone (Deltasone) 10 mg Taper DAILY PO 03/29/21 09:00 04/01/21 08:59 03/31/21 09:14 Ropinirole HCl (Requip) 1 mg QHS PO 03/28/21 21:00 03/30/21 20:55 Sitagliptin Phosphate (Januvia) 100 mg DAILY PO 03/29/21 09:00 03/31/21 09:11 Sodium Chloride (Sodium Chloride) 1 gm BIDWM PO 03/28/21 18:00 03/31/21 08:37 Trazodone HCl (Desyrel) 50 mg QHSP PRN PO INSOMNIA 03/28/21 14:15 Ziprasidone (Geodon) 60 mg BIDWM PO 03/28/21 18:00 03/31/21 08:36 Allergies Coded Allergies: Sulfa (Sulfonamide Antibiotics) (Verified Allergy, Mild, hives, 03/28/21) YAHAIRA KENNEDY MD Mar 31, 2021 12:55
[2021-03-31 18:04] VITALS: BP 150/82
[2021-03-31] MEDS: oxyBUTYnin *DITROPAN XL* 5 MG TABCR PO SCH (21:17)
[2021-03-31] MEDS: LATANOPROST 0.005% OPHTH SOLN 2.5 ML OU SCH (21:17)
[2021-03-31] MEDS: carBAMazepine 100MG 5ML SUSP ORAL SYRINGE *DRAW UP EXACT DOSE PO SCH (21:17)
[2021-03-31] MEDS: ACETAMINOPHEN TAB 650MG DOSE (2X325MG) PO SCH (21:18)
[2021-03-31] MEDS: rOPINIRole 1MG TAB PO SCH (21:18)
[2021-03-31] MEDS: LORazepam 0.5 MG TAB PO PRN (22:16)
[2021-04-01] MEDS: LEVOTHYROXINE 150MCG TABLET (0.15MG) PO SCH (05:41)
[2021-04-01 06:40] VITALS: BP 164/76
[2021-04-01] MEDS: ZIPRASIDONE 20MG CAPSULE (GEODON) PO SCH ×2 (08:00→17:44)
[2021-04-01] MEDS: metFORMIN (GLUCOPHAGE) 1000 MG TABLET PO SCH ×2 (08:00→17:44)
[2021-04-01] MEDS: METOPROLOL SUCC (TopROL XL) 100MG *XL* TAB PO SCH (08:00)
[2021-04-01] MEDS: SODIUM CHLORIDE 1 GM TAB PO SCH ×2 (08:00→17:45)
[2021-04-01 09:26] LABS: BLOOD UREA NITROGEN 15 MG/DL (7-18); CREATININE FOR GFR 0.82 MG/DL (0.55-1.30); GLUCOSE, FASTING 218 MG/DL (70-100)
[2021-04-01 09:27] LABS: CALCIUM LEVEL 9.1 MG/DL (8.8-10.2); CARBON DIOXIDE LEVEL 28 MEQ/L (21-32); CHLORIDE LEVEL 96 MEQ/L (98-107); GLOMERULAR FILTRATION RATE > 60.0 (>39); POTASSIUM SERUM 4.8 MEQ/L (3.5-5.1); SODIUM LEVEL 131 MEQ/L (136-145)
[2021-04-01] MEDS: DOCUSATE SODIUM 100MG CAPSULE PO SCH ×2 (09:52→21:12)
[2021-04-01] MEDS: FLUTICASONE HFA 44 MCG 10.6GM INHALER (FLOVENT) INH SCH ×2 (09:52→21:15)
[2021-04-01] MEDS: MULTIVITAMINS/MINERALS THERAP 1 TAB PO SCH (09:52)
[2021-04-01] MEDS: LOSARTAN 50MG TABLET PO SCH (09:53)
[2021-04-01] MEDS: carBAMazepine 100MG 5ML SUSP ORAL SYRINGE *DRAW UP EXACT DOSE PO SCH (09:54)
[2021-04-01] MEDS: NYSTATIN 100,000 UNITS/GM TOPICAL PWD 15 GM TOP SCH ×2 (10:02→21:00)
[2021-04-01] MEDS: amLODIPine 5 MG TAB PO SCH ×2 (10:02→17:44)
[2021-04-01] MEDS: SITagliptin 50 MG TAB (JANUVIA) PO SCH (10:03)
[2021-04-01] MEDS: ASPIRIN 81MG ENTERIC TABLET PO SCH (10:03)
[2021-04-01] MEDS ORDERED: ALBUTEROL 90 MCG/ACT 8GM HFA INHALER INH PRN (10:55)
--- NOTE | 2021-04-01 11:53 | MHIPNPDOC ---
[facility] Progress Note Progress Note DATE OF SERVICE: 04/01/21 HISTORY: Patient is a 75 -year-old Other, female, who has a past hisoty of bipolar disoder (reportedly diagnosed in the ), depression who presents on a 9.39 from her [facility] after she reports (confirmed on chart review) she wanted to kill herself by cutting her wrists with razor blades, but could not remove the safety covers. Reports struggling with worsening suicidal thoughts for the last few weeks, due to having to socialize in her [facility], states that "I got used to used to being alone", it is been so hard to see the new people there "as most of the people there have already ". On interview she is very labile, tearful, constricted, reports chronic low mood, anhedonia, low energy, poor concentration, lack of sleep, hopelessness, helplessness, worthlessness and passive suicidal thoughts which are vague. States she planned the day before getting razor blades to end her life, " I thought this was it". Reports she has had depression her whole life and has had several past attempts, reports at age 15 she tried to drink "Witch Concetta as a suicide attempt". States she feels her current medications are not helping her adequately her stressor for her worsening mood, was a lack of socialization during COVID with some of the friends who had passed and having to go to medical appointments on her own which has been lonely. Does report Kulwinder has helped with her moods. She was educated about hyponatremia and plan to decrease her carbamazepine, initially aileen sanchez was hesitant with this plan due to concerns " I am afraid things will get worse because the carbamazepine really helps my depression". Denies jan or ever having periods where she was not sleeping for days, but does describe periods of highs and lows in her life, although mostly depressed, with the highest being "periods where I was overly silly and it was normal". Denies any drug use. Patient is alert, oriented, coherent, mentation intact, does have some delusions guilt. Denies any homicidal ideations. Interval: Charts reviewed, sodium continues to be stable at 131. Patient was initially tearful and labile on interview, sat down with her and discussed some of the thoughts she may have it might affect her moods. Continues to feel nervous about returning to the assisted even though she wants to because it would be hard for her to meet the new residents. States she used to be her happy self with the carbamazepine and now that it is discontinued she feels less social. We discussed some coping strategies including motivational interviewing to allow for focusing on the positive and increasing engagement. Made aware carbamazepine will be discontinued today due to hyponatremia and a stat will start low-dose Depakote, was made aware of side effects and mechanism of action as a mood stabilizer to help her with lability and anxiety. Showed me her prior cards, and was encouraged by the hopefulness and looking them over. Shortly after leaving her room she was seen walking around the unit with her walker, per nursing which is more activity than previous days. Communicated to the hospitalist Dr. Velasco on if we can have someone evaluate for COPD due to low oxygen saturation on vital signs, 93 per nursing in the previous day. Does report a history of COPD, and having to clear her throat for phlegm. Had her stick her tongue out to evaluate for tardive dyskinesia, AIMS scoring was 0. denies AVH. VITAL SIGNS: See below. NEW TEST RESULTS: Na stable at 131 CURRENT MEDICATIONS: See below. MENTAL STATUS EXAMINATION: General Appearance: unkempt, hospital scubs/clothing, other (Tattoo R wrist, bruises), avoidant eye contact Build: overweight Demeanor: withdrawn Eye Contact: poor Activity: anxious Behavior: cooperative, loss of interests, anhedonia, withdrawn Speech: clear, slow, low in volume, non-spontaneous, thought blocking Mood: depressed Mood Still very depressed Affect: Dysthymic, but less so with engagement in conversation as it progressed, constricted, labile, tearful, but less so than previous days Thought Process: logical/linear Thought Content (Delusions): other (delusions of guilt) Thought Content (Other): coherent, continues to have vague suicidal ideations Thought Content (Aggressive): none reported Perception (Hallucinations): none reported Perception (Other): none reported Cognition (Impairment of): none reported Oriented: A/ox3 Insight: fair, improving Judgment: Poor, improving Psychosis: Denies DIAGNOSES: 1. Bipolar I disorder, depressive episode 2. R/O MDD, Persistent depressive disorder, neurocognitive disorder ASSESSMENT: Continues to be depressed, relatively unchanged from previous days despite taper down of carbamazepine, is now worried about not being able to return to [facility], with delusions of guilt. MANAGEMENT PLAN: Continued with brief CBT to help control for negative thoughts and associated moods.so that patient can work on identifying her distortions and challenging them. Continue ziprasidone 60 mg BID, d/c carbamazepine, start Depakote 250 mg daily, lfts 03/28 wnl, ordered A1c to assess for diabetes status, continue prn lorazepam 0.5 mg prn for breakthrough anxiety. Continue coordination or care for return to [facility] with discharge planners. Suggested nursing staff to engage in conversation to improve thoughts and hopefully mood, appears lack of engagement in [facility] may have contributed to mood symptoms discussion with patient. TIME SPENT: 40 minutes. Vital Signs Vital Signs Date Time Temp Pulse Resp B/P (MAP) Pulse Ox O2 Delivery O2 Flow Rate FiO2 04/01/21 10:02 98 140/100 04/01/21 06:40 98.1 20 95 Room Air Laboratory Data 24H Labs Laboratory Tests 2 04/01/21 08:47: Anion Gap 7L, Glomerular Filtration Rate > 60.0, Calcium Level 9.1 CBC/BMP Laboratory Tests 04/01/21 08:47 Current Medications Current Medications Medications (Trade) Dose Ordered Sig/Abigail Route PRN Reason Start Time Stop Time Status Last Admin Dose Admin Acetaminophen (Tylenol Tab) 650 mg Q6HP PRN PO HEADACHE or MILD DISCOMFORT 03/28/21 14:15 04/01/21 07:04 Acetaminophen (Tylenol Tab) 650 mg QHS PO 03/28/21 21:00 03/31/21 21:18 Al Hydrox/Mg Hydrox/Simethicone (Mylanta) 30 ml Q4HP PRN PO HEARTBURN/INDIGESTION 03/28/21 14:15 Albuterol Sulfate (Proventil, Ventolin Hfa) 2 puff Q4HP PRN INH SHORTNESS OF BREATH 04/01/21 10:55 Amlodipine Besylate (Norvasc) 5 mg BID PO 03/28/21 21:00 03/30/21 12:13 DC 03/29/21 21:56 Amlodipine Besylate (Norvasc) 5 mg BIDWM PO 03/30/21 18:00 04/01/21 10:02 Aspirin (Ecotrin) 81 mg DAILY PO 03/29/21 09:00 04/01/21 10:03 Carbamazepine (TEGretol SUSPENSION) 50 mg BID PO 03/31/21 21:00 04/01/21 09:54 Carbamazepine (TEGretol) 100 mg BID PO 03/28/21 21:00 03/29/21 14:59 DC 03/29/21 09:39 Carbamazepine (TEGretol) 100 mg BID PO 03/30/21 21:00 03/31/21 12:47 DC 03/31/21 09:14 Carbamazepine (TEGretol) 200 mg BID PO 03/28/21 21:00 03/29/21 14:59 DC 03/29/21 09:41 Carbamazepine (TEGretol) 200 mg BID PO 03/29/21 21:00 03/30/21 13:53 DC 03/30/21 12:08 Carbamazepine (TEGretol) 200 mg TID PO 03/29/21 16:00 03/29/21 15:03 DC Docusate Sodium (Colace) 100 mg BID PO 03/28/21 21:00 04/01/21 09:52 Fluticasone Propionate (Flovent Hfa 44 Mcg) 2 puff RBID INH 03/28/21 20:00 04/01/21 09:52 Glyburide (Diabeta, Micronase) 2.5 mg DAILY@0800 PO 03/29/21 08:00 04/01/21 10:08 Guaifenesin (Mucinex Tab Er) 600 mg BID PO 04/01/21 09:00 Home Med (Home Med List Complete!) ASDIRECTED XX 03/28/21 08:25 03/28/21 08:25 DC Hydrocortisone (Proctosol Hc) Apply to arms BID PRN TOP ITCHING 03/29/21 10:00 Latanoprost (Xalatan 0.005% Op Soln) 1 drop QHS OU 03/28/21 21:00 03/31/21 21:17 Levothyroxine Sodium (Synthroid) 150 mcg DAILY@0600 PO 03/29/21 06:00 04/01/21 05:41 Lorazepam (Ativan) 0.5 mg Q8HP PRN PO SEVERE ANXIETY 03/30/21 13:50 03/31/21 22:16 Losartan Potassium (Cozaar) 100 mg DAILY PO 03/29/21 09:00 04/01/21 09:53 Magnesium Hydroxide (Milk Of Magnesia) 30 ml DAILYPRN PRN PO CONSTIPATION 03/28/21 14:15 Metformin HCl (Glucophage) 1,000 mg BIDWM PO 03/28/21 18:00 04/01/21 08:00 Metoprolol Succinate (TopROL XL) 100 mg DAILY PO 03/29/21 09:00 03/30/21 12:29 DC 03/29/21 09:41 Metoprolol Succinate (TopROL XL) 100 mg DAILY@0800 PO 03/31/21 08:00 04/01/21 08:00 Multivitamins (Theragram-M) 1 tab DAILY PO 03/29/21 09:00 04/01/21 09:52 Neomycin/ Polymyxin/ Dexamethasone (Maxitrol) 1 drop QID OS 03/28/21 17:00 03/28/21 16:46 DC Nystatin (Mycostatin Powder, Nystop) 1 dose BID TOP 03/28/21 21:00 04/01/21 10:02 Oxybutynin Chloride (Ditropan Xl) 5 mg QHS PO 03/30/21 21:00 03/31/21 21:17 Prednisone (Deltasone) 10 mg Taper DAILY PO 03/29/21 09:00 04/01/21 08:59 DC 03/31/21 09:14 Ropinirole HCl (Requip) 1 mg QHS PO 03/28/21 21:00 03/31/21 21:18 Sitagliptin Phosphate (Januvia) 100 mg DAILY PO 03/29/21 09:00 04/01/21 10:03 Sodium Chloride (Sodium Chloride) 1 gm BIDWM PO 03/28/21 18:00 04/01/21 08:00 Tiotropium [place] (Spiriva Handihaler) 1 inhalation DAILY@08 INH 04/01/21 08:00 Trazodone HCl (Desyrel) 50 mg QHSP PRN PO INSOMNIA 03/28/21 14:15 Ziprasidone (Geodon) 60 mg BIDWM PO 03/28/21 18:00 04/01/21 08:00 Allergies Coded Allergies: Sulfa (Sulfonamide Antibiotics) (Verified Allergy, Mild, hives, 03/28/21) YAHAIRA KENNEDY MD Apr 01, 2021 11:53
[2021-04-01] MEDS: DIVALPROEX 250MG *ER* TAB PO SCH (12:03)
[2021-04-01] MEDS: TIOTROPIUM INHALER/CAPSULE (SPIRIVA) INH SCH (12:03)
[2021-04-01] MEDS: guaiFENesin ER 600 MG TAB PO SCH ×2 (12:03→21:16)
[2021-04-01 17:12] VITALS: BP 138/80
--- NOTE | 2021-04-01 19:54 | IPNPDOC ---
Subjective Date Seen The patient was seen on 04/01/21. Subjective Chief Complaint/HPI Patient was seen earlier in the day. She tells me that she used to have inhalers for COPD. Her PCP discontinued inhalers due to patient complaining of hyperactivity. Afterward realized that the hyperactivity was not due to any inhalers. Patient requested to be back on inhalers, but was not started on inhalers. Will start patient on albuterol as needed and Spiriva. Otherwise, patient also complained of phlegm. Started patient on guaifenesin On physical exam, patient did not have any wheezing. We will continue with albuterol as needed, Spiriva, and guaifenesin. Assessment /Plan Plan/VTE VTE Prophylaxis Ordered?: No (Ambulatory) VS, I&O, 24H, Fishbone Vital Signs/I&O Vital Signs Date Time Temp Pulse Resp B/P (MAP) Pulse Ox O2 Delivery O2 Flow Rate FiO2 04/01/21 17:44 82 138/80 04/01/21 17:12 98.1 16 04/01/21 06:40 95 Room Air Laboratory Data 24H LABS Laboratory Tests 2 04/01/21 08:47: Anion Gap 7L, Glomerular Filtration Rate > 60.0, Calcium Level 9.1 CBC/BMP Laboratory Tests 04/01/21 08:47 JOSSELINE KELLEY DO Apr 01, 2021 19:54
[2021-04-01] MEDS: ACETAMINOPHEN TAB 650MG DOSE (2X325MG) PO SCH (21:12)
[2021-04-01] MEDS: rOPINIRole 1MG TAB PO SCH (21:12)
[2021-04-01] MEDS: oxyBUTYnin *DITROPAN XL* 5 MG TABCR PO SCH (21:12)
[2021-04-01] MEDS: LATANOPROST 0.005% OPHTH SOLN 2.5 ML OU SCH (21:12)
[2021-04-02 05:33] VITALS: BP 160/80
[2021-04-02] MEDS: LEVOTHYROXINE 150MCG TABLET (0.15MG) PO SCH (05:48)
[2021-04-02] MEDS: METOPROLOL SUCC (TopROL XL) 100MG *XL* TAB PO SCH (08:48)
[2021-04-02] MEDS: metFORMIN (GLUCOPHAGE) 1000 MG TABLET PO SCH ×2 (08:48→17:35)
[2021-04-02] MEDS: TIOTROPIUM INHALER/CAPSULE (SPIRIVA) INH SCH (08:48)
[2021-04-02] MEDS: amLODIPine 5 MG TAB PO SCH ×2 (08:49→17:36)
[2021-04-02] MEDS: FLUTICASONE HFA 44 MCG 10.6GM INHALER (FLOVENT) INH SCH ×2 (08:49→20:30)
[2021-04-02] MEDS: ZIPRASIDONE 20MG CAPSULE (GEODON) PO SCH ×2 (08:49→17:36)
[2021-04-02] MEDS: SODIUM CHLORIDE 1 GM TAB PO SCH ×2 (08:49→17:35)
[2021-04-02] MEDS: NYSTATIN 100,000 UNITS/GM TOPICAL PWD 15 GM TOP SCH ×2 (09:00→20:27)
[2021-04-02] MEDS: DOCUSATE SODIUM 100MG CAPSULE PO SCH ×2 (10:20→20:30)
[2021-04-02] MEDS: SITagliptin 50 MG TAB (JANUVIA) PO SCH (10:21)
[2021-04-02] MEDS: MULTIVITAMINS/MINERALS THERAP 1 TAB PO SCH (10:21)
[2021-04-02] MEDS: DIVALPROEX 250MG *ER* TAB PO SCH (10:21)
[2021-04-02] MEDS: ASPIRIN 81MG ENTERIC TABLET PO SCH (10:22)
[2021-04-02] MEDS: LOSARTAN 50MG TABLET PO SCH (10:22)
[2021-04-02] MEDS: guaiFENesin ER 600 MG TAB PO SCH ×2 (10:22→20:30)
[2021-04-02 11:23] LABS: HEMOGLOBIN A1c 6.2 %
--- NOTE | 2021-04-02 11:56 | MHIPNPDOC ---
[facility] Progress Note Progress Note DATE OF SERVICE: 04/02/21 HISTORY: Patient is a 75 -year-old Other, female, who has a past hisoty of bipolar disoder (reportedly diagnosed in the ), depression who presents on a 9.39 from her [facility] after she reports (confirmed on chart review) she wanted to kill herself by cutting her wrists with razor blades, but could not remove the safety covers. Reports struggling with worsening suicidal thoughts for the last few weeks, due to having to socialize in her [facility], states that "I got used to used to being alone", it is been so hard to see the new people there "as most of the people there have already ". On interview she is very labile, tearful, constricted, reports chronic low mood, anhedonia, low energy, poor concentration, lack of sleep, hopelessness, helplessness, worthlessness and passive suicidal thoughts which are vague. States she planned the day before getting razor blades to end her life, " I thought this was it". Reports she has had depression her whole life and has had several past attempts, reports at age 15 she tried to drink "Witch Concetta as a suicide attempt". States she feels her current medications are not helping her adequately her stressor for her worsening mood, was a lack of socialization during COVID with some of the friends who had passed and having to go to medical appointments on her own which has been lonely. Does report Kulwinder has helped with her moods. She was educated about hyponatremia and plan to decrease her carbamazepine, initially she was hesitant with this plan due to concerns " I am afraid things will get worse because the carbamazepine really helps my depression". Denies jan or ever having periods where she was not sleeping for days, but does describe periods of highs and lows in her life, although mostly depressed, with the highest being "periods where I was overly silly and it was normal". Denies any drug use. Patient is alert, oriented, coherent, mentation intact, does have some delusions guilt. Denies any homicidal ideations. Interval: Charts reviewed. Patient is now seeing in the social you, eating food in the dining room. Less labile and tearful, reports tolerating her current medications including Depakote well. Reports she does needs more time for depression and fleeting suicidal thoughts, no clear intent or plan. Patient benefits from interactions as has been mostly isolated in her [facility]. Denies auditory or visual hallucinations, jan, or any acute physical symptoms of distress. Sleep is still "not great". Appetite is improved VITAL SIGNS: See below. NEW TEST RESULTS: none CURRENT MEDICATIONS: See below. MENTAL STATUS EXAMINATION: General Appearance: Improved hygiene, appears stated age, hospital scubs/clothing, other (Tattoo R wrist, bruises), improved eye contact Build: overweight Demeanor: Less withdrawn and isolative Eye Contact: Improving Activity: anxious Behavior: cooperative Speech: clear, slow, low in volume, non-spontaneous, less thought blocking Mood: "anxious" Mood Depressed Affect: Less dysthymic, moderately anxious, mood congruent, appropriate Thought Process: logical/linear Thought Content (Delusions): other (delusions of guilt), fleeting suicidal thoughts Thought Content (Other): coherent, continues to have vague suicidal ideations Thought Content (Aggressive): none reported Perception (Hallucinations): none reported Perception (Other): none reported Cognition (Impairment of): none reported Oriented: A/ox3 Insight: fair Judgment: Fair Psychosis: Denies DIAGNOSES: 1. Bipolar I disorder, depressive episode 2. R/O MDD, Persistent depressive disorder, neurocognitive disorder ASSESSMENT: Continues to improve despite discontinuing carbamazepine and cross tapering with low-dose Depakote. MANAGEMENT PLAN: Continued with brief CBT to help control for negative thoughts and associated moods.so that patient can work on identifying her distortions and challenging them. Continue ziprasidone 60 mg BID, Depakote 250 mg daily, lfts 03/28 wnl, HbA1c is 6.2, ordered fasting lipid panel, ordered Depakote level for 04/04, continue prn lorazepam 0.5 mg prn for breakthrough anxiety. Continue organ recovery coordinator rdination or care for return to [facility] with discharge planners. Continue to suggest to nursing staff to engage in conversation to improve thoughts and hopefully mood, appears lack of engagement in [facility] may have contributed to mood symptoms discussion with patient. Continue with motivational interviewing for engagement in symptomatic improvement TIME SPENT: 25 minutes. Vital Signs Vital Signs Date Time Temp Pulse Resp B/P (MAP) Pulse Ox O2 Delivery O2 Flow Rate FiO2 04/02/21 10:22 160/80 04/02/21 08:49 75 04/02/21 05:33 96.7 18 95 Room Air Laboratory Data 24H Labs Laboratory Tests 2 04/02/21 10:19: Estimated Mean Plasma Glucose 131H, Hemoglobin A1c 6.2 Current Medications Current Medications Medications (Trade) Dose Ordered Sig/Abigail Route PRN Reason Start Time Stop Time Status Last Admin Dose Admin Acetaminophen (Tylenol Tab) 650 mg Q6HP PRN PO HEADACHE or MILD DISCOMFORT 03/28/21 14:15 04/01/21 07:04 Acetaminophen (Tylenol Tab) 650 mg QHS PO 03/28/21 21:00 04/01/21 21:12 Al Hydrox/Mg Hydrox/Simethicone (Mylanta) 30 ml Q4HP PRN PO HEARTBURN/INDIGESTION 03/28/21 14:15 Albuterol Sulfate (Proventil, Ventolin Hfa) 2 puff Q4HP PRN INH SHORTNESS OF BREATH 04/01/21 10:55 Amlodipine Besylate (Norvasc) 5 mg BID PO 03/28/21 21:00 03/30/21 12:13 DC 03/29/21 21:56 Amlodipine Besylate (Norvasc) 5 mg BIDWM PO 03/30/21 18:00 04/02/21 08:49 Aspirin (Ecotrin) 81 mg DAILY PO 03/29/21 09:00 04/02/21 10:22 Carbamazepine (TEGretol SUSPENSION) 50 mg BID PO 03/31/21 21:00 04/01/21 11:40 DC 04/01/21 09:54 Carbamazepine (TEGretol) 100 mg BID PO 03/28/21 21:00 03/29/21 14:59 DC 03/29/21 09:39 Carbamazepine (TEGretol) 100 mg BID PO 03/30/21 21:00 03/31/21 12:47 DC 03/31/21 09:14 Carbamazepine (TEGretol) 200 mg BID PO 03/28/21 21:00 03/29/21 14:59 DC 03/29/21 09:41 Carbamazepine (TEGretol) 200 mg BID PO 03/29/21 21:00 03/30/21 13:53 DC 03/30/21 12:08 Carbamazepine (TEGretol) 200 mg TID PO 03/29/21 16:00 03/29/21 15:03 DC Divalproex Sodium (Depakote Er) 250 mg DAILY PO 04/01/21 09:00 04/02/21 10:21 Docusate Sodium (Colace) 100 mg BID PO 03/28/21 21:00 04/02/21 10:20 Fluticasone Propionate (Flovent Hfa 44 Mcg) 2 puff RBID INH 03/28/21 20:00 04/02/21 08:49 Glyburide (Diabeta, Micronase) 2.5 mg DAILY@0800 PO 03/29/21 08:00 04/02/21 08:48 Guaifenesin (Mucinex Tab Er) 600 mg BID PO 04/01/21 09:00 04/02/21 10:22 Home Med (Home Med List Complete!) ASDIRECTED XX 03/28/21 08:25 03/28/21 08:25 DC Hydrocortisone (Proctosol Hc) Apply to arms BID PRN TOP ITCHING 03/29/21 10:00 Latanoprost (Xalatan 0.005% Op Soln) 1 drop QHS OU 03/28/21 21:00 04/01/21 21:12 Levothyroxine Sodium (Synthroid) 150 mcg DAILY@0600 PO 03/29/21 06:00 04/02/21 05:48 Lorazepam (Ativan) 0.5 mg Q8HP PRN PO SEVERE ANXIETY 03/30/21 13:50 03/31/21 22:16 Losartan Potassium (Cozaar) 100 mg DAILY PO 03/29/21 09:00 04/02/21 10:22 Magnesium Hydroxide (Milk Of Magnesia) 30 ml DAILYPRN PRN PO CONSTIPATION 03/28/21 14:15 Metformin HCl (Glucophage) 1,000 mg BIDWM PO 03/28/21 18:00 04/02/21 08:48 Metoprolol Succinate (TopROL XL) 100 mg DAILY PO 03/29/21 09:00 03/30/21 12:29 DC 03/29/21 09:41 Metoprolol Succinate (TopROL XL) 100 mg DAILY@0800 PO 03/31/21 08:00 04/02/21 08:48 Multivitamins (Theragram-M) 1 tab DAILY PO 03/29/21 09:00 04/02/21 10:21 Neomycin/ Polymyxin/ Dexamethasone (Maxitrol) 1 drop QID OS 03/28/21 17:00 03/28/21 16:46 DC Nystatin (Mycostatin Powder, Nystop) 1 dose BID TOP 03/28/21 21:00 04/01/21 10:02 Oxybutynin Chloride (Ditropan Xl) 5 mg QHS PO 03/30/21 21:00 04/01/21 21:12 Prednisone (Deltasone) 10 mg Taper DAILY PO 03/29/21 09:00 04/01/21 08:59 DC 03/31/21 09:14 Ropinirole HCl (Requip) 1 mg QHS PO 03/28/21 21:00 04/01/21 21:12 Sitagliptin Phosphate (Januvia) 100 mg DAILY PO 03/29/21 09:00 04/02/21 10:21 Sodium Chloride (Sodium Chloride) 1 gm BIDWM PO 03/28/21 18:00 04/02/21 08:49 Tiotropium [place] (Spiriva Handihaler) 1 inhalation DAILY@08 INH 04/01/21 08:00 04/02/21 08:48 Trazodone HCl (Desyrel) 50 mg QHSP PRN PO INSOMNIA 03/28/21 14:15 Ziprasidone (Geodon) 60 mg BIDWM PO 03/28/21 18:00 04/02/21 08:49 Allergies Coded Allergies: Sulfa (Sulfonamide Antibiotics) (Verified Allergy, Mild, hives, 03/28/21) YAHAIRA KENNEDY MD Apr 02, 2021 11:56
[2021-04-02 13:15] LABS: CHOLESTEROL RISK RATIO 4.087 (<5)
[2021-04-02 18:16] VITALS: BP 145/76
[2021-04-02] MEDS: LATANOPROST 0.005% OPHTH SOLN 2.5 ML OU SCH (20:30)
[2021-04-02] MEDS: rOPINIRole 1MG TAB PO SCH (20:30)
[2021-04-02] MEDS: oxyBUTYnin *DITROPAN XL* 5 MG TABCR PO SCH (20:30)
[2021-04-02] MEDS: LORazepam 0.5 MG TAB PO PRN (20:30)
[2021-04-02] MEDS: ACETAMINOPHEN TAB 650MG DOSE (2X325MG) PO SCH (20:31)
[2021-04-03] MEDS: LEVOTHYROXINE 150MCG TABLET (0.15MG) PO SCH (05:50)
[2021-04-03 07:03] VITALS: BP 186/88
[2021-04-03] MEDS ORDERED: **hydrALAZINE HCL** 25 MG TAB PO PRN (07:15)
[2021-04-03] MEDS: FLUTICASONE HFA 44 MCG 10.6GM INHALER (FLOVENT) INH SCH ×2 (07:44→21:00)
[2021-04-03] MEDS: SODIUM CHLORIDE 1 GM TAB PO SCH ×2 (07:45→17:19)
[2021-04-03] MEDS: METOPROLOL SUCC (TopROL XL) 100MG *XL* TAB PO SCH (07:45)
[2021-04-03] MEDS: TIOTROPIUM INHALER/CAPSULE (SPIRIVA) INH SCH (07:46)
[2021-04-03] MEDS: metFORMIN (GLUCOPHAGE) 1000 MG TABLET PO SCH ×2 (07:46→17:19)
[2021-04-03] MEDS: ZIPRASIDONE 20MG CAPSULE (GEODON) PO SCH ×2 (07:47→17:20)
[2021-04-03] MEDS: amLODIPine 5 MG TAB PO SCH ×2 (07:47→17:20)
[2021-04-03] MEDS: NYSTATIN 100,000 UNITS/GM TOPICAL PWD 15 GM TOP SCH ×2 (09:00→21:01)
[2021-04-03] MEDS ORDERED: CHLORTHALIDONE 12.5MG PER 1/2 TABLET PO SCH (09:00)
[2021-04-03] MEDS: guaiFENesin ER 600 MG TAB PO SCH ×2 (09:02→21:00)
[2021-04-03] MEDS: DOCUSATE SODIUM 100MG CAPSULE PO SCH ×2 (09:02→21:00)
[2021-04-03] MEDS: MULTIVITAMINS/MINERALS THERAP 1 TAB PO SCH (09:02)
[2021-04-03] MEDS: ASPIRIN 81MG ENTERIC TABLET PO SCH (09:02)
[2021-04-03] MEDS: SITagliptin 50 MG TAB (JANUVIA) PO SCH (09:02)
[2021-04-03] MEDS: DIVALPROEX 250MG *ER* TAB PO SCH (09:02)
[2021-04-03 16:17] VITALS: BP 121/74
[2021-04-03] MEDS: ACETAMINOPHEN TAB 650MG DOSE (2X325MG) PO SCH (20:59)
[2021-04-03] MEDS: rOPINIRole 1MG TAB PO SCH (21:00)
[2021-04-03] MEDS: oxyBUTYnin *DITROPAN XL* 5 MG TABCR PO SCH (21:00)
[2021-04-03] MEDS: LOSARTAN 50MG TABLET PO SCH (21:00)
[2021-04-03] MEDS: LATANOPROST 0.005% OPHTH SOLN 2.5 ML OU SCH (21:00)
[2021-04-03] MEDS: LORazepam 0.5 MG TAB PO PRN (21:03)
[2021-04-04] MEDS: LEVOTHYROXINE 150MCG TABLET (0.15MG) PO SCH (05:50)
[2021-04-04 06:58] VITALS: BP 122/74
[2021-04-04] MEDS: SODIUM CHLORIDE 1 GM TAB PO SCH ×2 (08:17→17:18)
[2021-04-04] MEDS: ZIPRASIDONE 20MG CAPSULE (GEODON) PO SCH ×2 (08:17→17:20)
[2021-04-04] MEDS: amLODIPine 5 MG TAB PO SCH ×2 (08:18→17:18)
[2021-04-04] MEDS: METOPROLOL SUCC (TopROL XL) 100MG *XL* TAB PO SCH (08:18)
[2021-04-04] MEDS: metFORMIN (GLUCOPHAGE) 1000 MG TABLET PO SCH ×2 (08:18→17:18)
[2021-04-04] MEDS: TIOTROPIUM INHALER/CAPSULE (SPIRIVA) INH SCH (08:18)
[2021-04-04] MEDS: FLUTICASONE HFA 44 MCG 10.6GM INHALER (FLOVENT) INH SCH ×2 (08:18→20:38)
[2021-04-04] MEDS: CHLORTHALIDONE 25 MG TAB PO SCH (08:29)
[2021-04-04] MEDS: MULTIVITAMINS/MINERALS THERAP 1 TAB PO SCH ×2 (08:29→08:31)
[2021-04-04] MEDS: ASPIRIN 81MG ENTERIC TABLET PO SCH (08:29)
[2021-04-04] MEDS: guaiFENesin ER 600 MG TAB PO SCH ×2 (08:31→20:39)
[2021-04-04] MEDS: DOCUSATE SODIUM 100MG CAPSULE PO SCH ×2 (08:31→20:38)
[2021-04-04] MEDS: DIVALPROEX 250MG *ER* TAB PO SCH (08:31)
[2021-04-04] MEDS: SITagliptin 50 MG TAB (JANUVIA) PO SCH (08:32)
[2021-04-04] MEDS: NYSTATIN 100,000 UNITS/GM TOPICAL PWD 15 GM TOP SCH ×2 (08:33→20:40)
[2021-04-04 19:01] VITALS: BP 101/54
[2021-04-04] MEDS: ACETAMINOPHEN TAB 650MG DOSE (2X325MG) PO SCH (20:39)
[2021-04-04] MEDS: LATANOPROST 0.005% OPHTH SOLN 2.5 ML OU SCH (20:40)
[2021-04-04] MEDS: rOPINIRole 1MG TAB PO SCH (20:42)
[2021-04-04] MEDS: oxyBUTYnin *DITROPAN XL* 5 MG TABCR PO SCH (20:43)
[2021-04-04] MEDS: LORazepam 0.5 MG TAB PO PRN (20:53)
[2021-04-04] MEDS: LOSARTAN 50MG TABLET PO SCH (20:53)
[2021-04-05] MEDS: LEVOTHYROXINE 150MCG TABLET (0.15MG) PO SCH (05:26)
[2021-04-05 06:12] VITALS: BP 150/76
[2021-04-05] MEDS: FLUTICASONE HFA 44 MCG 10.6GM INHALER (FLOVENT) INH SCH ×2 (08:51→20:43)
[2021-04-05] MEDS: TIOTROPIUM INHALER/CAPSULE (SPIRIVA) INH SCH (08:52)
[2021-04-05] MEDS: DIVALPROEX 250MG *ER* TAB PO SCH (08:52)
[2021-04-05] MEDS: SODIUM CHLORIDE 1 GM TAB PO SCH ×2 (08:52→18:08)
[2021-04-05] MEDS: guaiFENesin ER 600 MG TAB PO SCH ×2 (08:52→20:42)
[2021-04-05] MEDS: ASPIRIN 81MG ENTERIC TABLET PO SCH (08:52)
[2021-04-05] MEDS: metFORMIN (GLUCOPHAGE) 1000 MG TABLET PO SCH ×2 (08:52→18:08)
[2021-04-05] MEDS: CHLORTHALIDONE 25 MG TAB PO SCH (08:52)
[2021-04-05] MEDS: MULTIVITAMINS/MINERALS THERAP 1 TAB PO SCH (08:52)
[2021-04-05] MEDS: SITagliptin 50 MG TAB (JANUVIA) PO SCH (08:52)
[2021-04-05] MEDS: NYSTATIN 100,000 UNITS/GM TOPICAL PWD 15 GM TOP SCH ×2 (08:52→20:41)
[2021-04-05] MEDS: ZIPRASIDONE 20MG CAPSULE (GEODON) PO SCH ×2 (08:52→18:08)
[2021-04-05] MEDS: DOCUSATE SODIUM 100MG CAPSULE PO SCH ×2 (08:52→20:41)
[2021-04-05] MEDS: METOPROLOL SUCC (TopROL XL) 100MG *XL* TAB PO SCH (08:59)
[2021-04-05] MEDS: amLODIPine 5 MG TAB PO SCH ×2 (08:59→18:13)
--- NOTE | 2021-04-05 12:27 | MHIPNPDOC ---
[facility] Progress Note Progress Note DATE OF SERVICE: 04/05/21 HISTORY: Patient is a 75 -year-old, female, who has a past history of bipolar disorder (reportedly diagnosed in the ), and depression who presents on a 9.39 from her [facility] after she reports (confirmed on chart review) she wanted to kill herself by cutting her wrists with razor blades, but could not remove the safety covers. Reports struggling with worsening suicidal thoughts for the last few weeks, due to having to socialize in her retirement, states that "I got used to used to being alone", it is been so hard to see the new people there "as most of the people there have already ". On interview she is very labile, tearful, constricted, reports chronic low mood, anhedonia, low energy, poor concentration, lack of sleep, hopelessness, helplessness, worthlessness and passive suicidal thoughts which are vague. States she planned the day before getting razor blades to end her life, " I thought this was it". Reports she has had depression her whole life and has had several past attempts, reports at age 15 she tried to drink "Witch Concetta as a suicide attempt". States she feels her current medications are not helping her adequately her stressor for her worsening mood, was a lack of socialization during COVID with some of the friends who had passed and having to go to medical appointments on her own which has been lonely. Does report Kulwinder has helped with her moods. She was educated about hyponatremia and plan to decrease her carbamazepine, initially she was hesitant with this plan due to concerns " I am afraid things will get worse because the carbamazepine really helps my depression". Denies jan or ever having periods where she was not sleeping for days, but does describe periods of highs and lows in her life, although mostly depressed, with the highest being "periods where I was overly silly and it was normal". Denies any drug use. Patient is alert, oriented, coherent, mentation intact, does have some delusions guilt. Denies any homicidal ideations. Interval: Charts reviewed. Per nursing patient continues to have improved mood which is stable, she is saying and laughing and smiling at times with less tearful affect. Reports tolerating medications well without side effects. Was able to sleep overnight and eats in the lunch room. Discussed possibly leaving soon if she continues to improve tomorrow. States she is agreeable with the plan, does have some concern for having her possessions back including her lorenzana and hanging pouches for her walker. Again today she was redirected with brief CBT to address her negative cognitive distortions. We discussed how she does not like making small talk or brief acquaintances, and that she and her therapist can work towards her making new deeper relationships, as the people she was close to have reportedly, or been moved. Patient was able to recognize her catastrophic thinking at times which gets in the way of her being productive socially. No longer reporting suicidal ideations, intent or plan. VITAL SIGNS: See below. NEW TEST RESULTS: Total cholesterol 233, LDL 147, Depakote level of 11.9 CURRENT MEDICATIONS: See below. MENTAL STATUS EXAMINATION: General Appearance: Improved hygiene, appears stated age, hospital scubs/clothing, other (Tattoo R wrist, bruises), improved eye contact Build: overweight Demeanor: Less withdrawn and isolative Eye Contact: Improving Activity: anxious Behavior: cooperative Speech: clear, slow, low in volume, non-spontaneous, less thought blocking Mood: "Better" Mood Depressed Affect: Mildly dysthymic at times, also smiles and laughs when engaged in conversation, less anxious, mood congruent, appropriate Thought Process: logical/linear Thought Content (Delusions): other (delusions of guilt), fleeting suicidal thou ghts Thought Content (Other): coherent, continues to have vague suicidal ideations Thought Content (Aggressive): none reported Perception (Hallucinations): none reported Perception (Other): none reported Cognition (Impairment of): none reported Oriented: A/ox3 Insight: fair Judgment: Fair Psychosis: Denies DIAGNOSES: 1. Bipolar I disorder, depressive episode 2. R/O MDD, Persistent depressive disorder, neurocognitive disorder ASSESSMENT: Continues to improve despite discontinuing carbamazepine and cross tapering with low-dose Depakote. MANAGEMENT PLAN: Continued with brief CBT to help control for negative thoughts/catastrophic thinking which leads to isolation and worsening depression. Continue ziprasidone 60 mg BID, Depakote 250 mg daily, lfts 03/28 wnl, HbA1c is 6.2, lipid panel shows total cholesterol 233 and LDL of 147 both elevated, requires education on diet and exercise, Depakote level 04/04 not elevated, continue prn lorazepam 0.5 mg prn for breakthrough anxiety. Will continue coordination or care for return to [facility] with discharge planners. Continue to suggest to nursing staff to engage in conversation to improve thoughts and hopefully mood, appears lack of engagement in LONGTERM may have contributed to mood symptoms discussion with patient. Continue with motivational interviewing. TIME SPENT: 30 minutes, including coordination of care Vital Signs Vital Signs Date Time Temp Pulse Resp B/P (MAP) Pulse Ox O2 Delivery O2 Flow Rate FiO2 04/05/21 08:59 73 04/05/21 08:59 127/64 04/05/21 06:12 97.2 20 96 Room Air Current Medications Current Medications Medications (Trade) Dose Ordered Sig/Abigail Route PRN Reason Start Time Stop Time Status Last Admin Dose Admin Acetaminophen (Tylenol Tab) 650 mg Q6HP PRN PO HEADACHE or MILD DISCOMFORT 03/28/21 14:15 04/01/21 07:04 Acetaminophen (Tylenol Tab) 650 mg QHS PO 03/28/21 21:00 04/04/21 20:39 Al Hydrox/Mg Hydrox/Simethicone (Mylanta) 30 ml Q4HP PRN PO HEARTBURN/INDIGESTION 03/28/21 14:15 Albuterol Sulfate (Proventil, Ventolin Hfa) 2 puff Q4HP PRN INH SHORTNESS OF BREATH 04/01/21 10:55 Amlodipine Besylate (Norvasc) 5 mg BID PO 03/28/21 21:00 03/30/21 12:13 DC 03/29/21 21:56 Amlodipine Besylate (Norvasc) 5 mg BIDWM PO 03/30/21 18:00 04/05/21 08:59 Aspirin (Ecotrin) 81 mg DAILY PO 03/29/21 09:00 04/05/21 08:52 Carbamazepine (TEGretol SUSPENSION) 50 mg BID PO 03/31/21 21:00 04/01/21 11:40 DC 04/01/21 09:54 Carbamazepine (TEGretol) 100 mg BID PO 03/28/21 21:00 03/29/21 14:59 DC 03/29/21 09:39 Carbamazepine (TEGretol) 100 mg BID PO 03/30/21 21:00 03/31/21 12:47 DC 03/31/21 09:14 Carbamazepine (TEGretol) 200 mg BID PO 03/28/21 21:00 03/29/21 14:59 DC 03/29/21 09:41 Carbamazepine (TEGretol) 200 mg BID PO 03/29/21 21:00 03/30/21 13:53 DC 03/30/21 12:08 Carbamazepine (TEGretol) 200 mg TID PO 03/29/21 16:00 03/29/21 15:03 DC Chlorthalidone (Hygroton) 25 mg DAILY PO 04/04/21 09:00 04/05/21 08:52 Chlorthalidone (Hygroton, Chlorthalidone) 12.5 mg DAILY PO 04/03/21 09:00 04/03/21 12:40 DC 04/03/21 09:07 Divalproex Sodium (Depakote Er) 250 mg DAILY PO 04/01/21 09:00 04/05/21 08:52 Docusate Sodium (Colace) 100 mg BID PO 03/28/21 21:00 04/05/21 08:52 Fluticasone Propionate (Flovent Hfa 44 Mcg) 2 puff RBID INH 03/28/21 20:00 04/05/21 08:51 Glyburide (Diabeta, Micronase) 2.5 mg DAILY@0800 PO 03/29/21 08:00 04/05/21 08:52 Guaifenesin (Mucinex Tab Er) 600 mg BID PO 04/01/21 09:00 04/05/21 08:52 Home Med (Home Med List Complete!) ASDIRECTED XX 03/28/21 08:25 03/28/21 08:25 DC Hydralazine HCl (Apresoline) 25 mg Q6HP PRN PO SBP >160 04/03/21 07:15 04/03/21 09:03 Hydrocortisone (Proctosol Hc) Apply to arms BID PRN TOP ITCHING 03/29/21 10:00 Latanoprost (Xalatan 0.005% Op Soln) 1 drop QHS OU 03/28/21 21:00 04/04/21 20:40 Levothyroxine Sodium (Synthroid) 150 mcg DAILY@0600 PO 03/29/21 06:00 04/05/21 05:26 Lorazepam (Ativan) 0.5 mg Q8HP PRN PO SEVERE ANXIETY 03/30/21 13:50 04/04/21 20:53 Losartan Potassium (Cozaar) 100 mg DAILY PO 03/29/21 09:00 04/03/21 07:21 DC 04/02/21 10:22 Losartan Potassium (Cozaar) 100 mg QHS PO 04/03/21 21:00 04/04/21 20:53 Magnesium Hydroxide (Milk Of Magnesia) 30 ml DAILYPRN PRN PO CONSTIPATION 03/28/21 14:15 Metformin HCl (Glucophage) 1,000 mg BIDWM PO 03/28/21 18:00 04/05/21 08:52 Metoprolol Succinate (TopROL XL) 100 mg DAILY PO 03/29/21 09:00 03/30/21 12:29 DC 03/29/21 09:41 Metoprolol Succinate (TopROL XL) 100 mg DAILY@0800 PO 03/31/21 08:00 04/05/21 08:59 Miscellaneous (Unresolved Clarification Entry) SEE LABEL COMMENTS DAILY XX 04/04/21 09:00 Multivitamins (Theragram-M) 1 tab DAILY PO 03/29/21 09:00 04/05/21 08:52 Neomycin/ Polymyxin/ Dexamethasone (Maxitrol) 1 drop QID OS 03/28/21 17:00 03/28/21 16:46 DC Nystatin (Mycostatin Powder, Nystop) 1 dose BID TOP 03/28/21 21:00 04/05/21 08:52 Oxybutynin Chloride (Ditropan Xl) 5 mg QHS PO 03/30/21 21:00 04/04/21 20:43 Prednisone (Deltasone) 10 mg Taper DAILY PO 03/29/21 09:00 04/01/21 08:59 DC 03/31/21 09:14 Ropinirole HCl (Requip) 1 mg QHS PO 03/28/21 21:00 04/04/21 20:42 Sitagliptin Phosphate (Januvia) 100 mg DAILY PO 03/29/21 09:00 04/05/21 08:52 Sodium Chloride (Sodium Chloride) 1 gm BIDWM PO 03/28/21 18:00 04/05/21 08:52 Tiotropium [place] (Spiriva Handihaler) 1 inhalation DAILY@08 INH 04/01/21 08:00 04/05/21 08:52 Trazodone HCl (Desyrel) 50 mg QHSP PRN PO INSOMNIA 03/28/21 14:15 Ziprasidone (Geodon) 60 mg BIDWM PO 03/28/21 18:00 04/05/21 08:52 Allergies Coded Allergies: Sulfa (Sulfonamide Antibiotics) (Verified Allergy, Mild, hives, 03/28/21) YAHAIRA KENNEDY MD Apr 05, 2021 12:27
[2021-04-05 14:48] LABS: BLOOD UREA NITROGEN 16 MG/DL (7-18); CALCIUM LEVEL 9.4 MG/DL (8.8-10.2); CARBON DIOXIDE LEVEL 30 MEQ/L (21-32); CHLORIDE LEVEL 98 MEQ/L (98-107); GLOMERULAR FILTRATION RATE > 60.0 (>39); GLUCOSE, FASTING 127 MG/DL (70-100); POTASSIUM SERUM 4.4 MEQ/L (3.5-5.1); SODIUM LEVEL 134 MEQ/L (136-145)
[2021-04-05 16:27] VITALS: BP 130/58
[2021-04-05] MEDS: rOPINIRole 1MG TAB PO SCH (20:41)
[2021-04-05] MEDS: LORazepam 0.5 MG TAB PO PRN (20:41)
[2021-04-05] MEDS: oxyBUTYnin *DITROPAN XL* 5 MG TABCR PO SCH (20:42)
[2021-04-05] MEDS: ACETAMINOPHEN TAB 650MG DOSE (2X325MG) PO SCH (20:42)
[2021-04-05] MEDS: LOSARTAN 50MG TABLET PO SCH (20:42)
[2021-04-05] MEDS: LATANOPROST 0.005% OPHTH SOLN 2.5 ML OU SCH (20:43)
[2021-04-06] MEDS: LEVOTHYROXINE 150MCG TABLET (0.15MG) PO SCH (05:24)
[2021-04-06 05:48] VITALS: BP 124/79
[2021-04-06] MEDS: NYSTATIN 100,000 UNITS/GM TOPICAL PWD 15 GM TOP SCH ×2 (09:00→10:10)
[2021-04-06] MEDS: guaiFENesin ER 600 MG TAB PO SCH (09:25)
[2021-04-06] MEDS: metFORMIN (GLUCOPHAGE) 1000 MG TABLET PO SCH (09:25)
[2021-04-06 09:26] VITALS: BP 169/82
[2021-04-06] MEDS: ASPIRIN 81MG ENTERIC TABLET PO SCH (09:26)
[2021-04-06] MEDS: METOPROLOL SUCC (TopROL XL) 100MG *XL* TAB PO SCH (09:26)
[2021-04-06] MEDS: amLODIPine 5 MG TAB PO SCH (09:26)
[2021-04-06] MEDS: DOCUSATE SODIUM 100MG CAPSULE PO SCH (09:26)
[2021-04-06] MEDS: MULTIVITAMINS/MINERALS THERAP 1 TAB PO SCH (09:27)
[2021-04-06] MEDS: CHLORTHALIDONE 25 MG TAB PO SCH (09:27)
[2021-04-06] MEDS: DIVALPROEX 250MG *ER* TAB PO SCH (09:27)
[2021-04-06] MEDS: SITagliptin 50 MG TAB (JANUVIA) PO SCH (09:27)
[2021-04-06] MEDS: SODIUM CHLORIDE 1 GM TAB PO SCH (09:37)
[2021-04-06] MEDS: ZIPRASIDONE 20MG CAPSULE (GEODON) PO SCH (09:37)
[2021-04-06] MEDS: FLUTICASONE HFA 44 MCG 10.6GM INHALER (FLOVENT) INH SCH (09:38)
[2021-04-06] MEDS: TIOTROPIUM INHALER/CAPSULE (SPIRIVA) INH SCH (09:38)
[2021-04-06] MEDS ORDERED: ASPI-551 PO (11:18)
[2021-04-06] MEDS ORDERED: MUCI600T31 PO (11:18)
[2021-04-06] MEDS ORDERED: CHLO25TA PO (11:18)
[2021-04-06] MEDS ORDERED: PROC1CRE5 TOP (11:18)
[2021-04-06] MEDS ORDERED: ATIV1TAB10 PO (11:18)
[2021-04-06] MEDS ORDERED: LEVO150T7 PO (11:18)
[2021-04-06] MEDS ORDERED: COZA50TA PO (11:18)
[2021-04-06] MEDS ORDERED: SITA50TAB PO (11:18)
[2021-04-06] MEDS ORDERED: METF10004 PO (11:18)
[2021-04-06] MEDS ORDERED: GLYB2.5T7 PO (11:18)
[2021-04-06] MEDS ORDERED: VENTAER INH (11:18)
[2021-04-06] MEDS ORDERED: METO1TAB33 PO (11:18)
[2021-04-06] MEDS ORDERED: COLA100C5 PO (11:18)
[2021-04-06] MEDS ORDERED: TIOT18INH INH (11:18)
[2021-04-06] MEDS ORDERED: SODI1TAB6 PO (11:18)
[2021-04-06] MEDS ORDERED: DITR5TAB PO (11:18)
[2021-04-06] MEDS ORDERED: AMLO1TAB24 PO (11:18)
[2021-04-06] MEDS ORDERED: VITMTA PO (11:18)
[2021-04-06] MEDS ORDERED: ROPI1TAB3 PO (11:18)
[2021-04-06] MEDS ORDERED: DEPA250T2 PO (11:18)
[2021-04-06] MEDS ORDERED: GEOD20CA PO (11:18)
[2021-04-06] MEDS ORDERED: TRAZ-252 PO (11:18)
[2021-04-06] MEDS ORDERED: FLUT44IN INH (11:18)
[2021-04-06] MEDS ORDERED: Latanoprost 0.005% Op Soln OU (11:18)
[2021-04-06] MEDS ORDERED: NYST10006 TOP (11:18)
--- NOTE | 2021-04-06 15:57 | MHDSPDOC ---
[facility] Discharge Summary Discharge Summary DATE OF ADMISSION: Mar 28, 2021 at 14:15 DATE OF DISCHARGE: Apr 06, 2021 at 12:15 DISCHARGE DIAGNOSES: 1. Bipolar I disorder, depressive episode 2. Panic attacks with agoraphobia REASON FOR ADMISSION: Per PSA evaluation: "Pt was brought to the ED by [facility], but accompanied by [facility] who completed a 9.41. Pt is a resident at [facility]) after pt claimed she tried to kill herself by cutting wrist with a razor blade? No lacerations noted upon MD interview.pt states, "I just want God to kill me." Pt reports struggling with suicidal thoughts for the past few days. States while she was trying to fall asleep last night she was planning her suicide for today. States she planned to slit her wrist with her new razor blade, however her plan fell through due to unable to take the cover off, therefore decided to inform staff member instead. During interview, pt is very tearful while referring to suicidal stressors. She identifies stressors as heavily disliking where she is living. States she moved into [facility] Sep, 2013 and reports overall liking the facility, however with COVID regulations it's been difficult. At the beginning of the pandemic, she did not like having to eat all meals in her room alone, however now is being forced to eat in the dining room again and states "I just can't stand it with all this change." Pt continues to voice SI with plan to slit her wrist. Pt appears very depressed during interview and quite agitated when talking about stressor. Pt has a long hx of Bipolar and Major Depressive Disorder, currently seeks tx with [facility]). Pt has been admitted to [facility] in the past, last admitted to [facility] January, and then [place] [facility] CONSULTANTS INVOLVED: See medical H&P by hospitalist, PT and OT TREATMENT AND PROGRESS ON THE UNIT : Patient was admitted to the [facility] legal status, she was afforded the following treatment modalities: 1. Individual therapy 2. Group therapy 3. Medication management 4. Milieu therapy 5. Safe environment HOSPITAL COURSE: Patient was admitted to the [facility] on a 39 legal status after being medically cleared in the ED. Was brought from her LONG TERM due to wanting to cut her wrists however having the safety The Razor Blades Being Unable to do so. Was initially continued on her home medications including carbamazepine 300 mg twice daily. Was noted to have a hyponatremia on in the ED, likely in context of her carbamazepine, so we will slowly taper down by 100 mg every 1 or 2 days. Patient was not delirious and alert and oriented during her stay. Was put on salt tablets and fluid restricted to 2000 cc. was continued on her Geodon 60 mg twice daily for bipolar 1 disorder, per chart review had an extensive history since the . Patient had some breakthrough anxiety and benefited from as needed lorazepam 0.5 mg nightly to help with her sleep. Was not noted to have any falls or issues with her medications, denies acute physical complaints. Was able to use her walker and get to the milieu for meals. Encouraged to attend groups. Once carbamazepine was discontinued, sodium was trended up to 134 after starting low-dose Depakote ER 50 mg p.o. daily. Prior to discharge patient was noted to be no longer tearful, labile, depressed, anxious. Was smiling and more engaged on interview. Denied suicidal ideation and was looking forward to return to her [facility]. During stay brief CBT was done with her daily, to work on her negative cognitive distortions and thought patterns, which she found helpful with improvement in mood. After being discharged to LONG TERM wanted to confirm medications including multiple medications for blood pressure, and diabetes which were continued after being started on the unit and being seen by the hospitalist team. Contacted the hospitalist prior to discharge, Dr. Marcus, who suggested patient be seen by PCP in 1 week and to continue salt tablet replacement and treatment as usual until PCP visit where things can be managed moving forward. DISCHARGE ASSESSMENT: On today's interview, patient is alert and oriented, dressed appropriately with good hygiene sitting next to her walker. Is smiling and pleasant, no longer tearful and more engaged in interview. Denies depression or anxiety. Denies suicidal or homicidal ideation, intent or plan. Denies any is not observed with symptoms of jan, psychotic symptoms including bizarre thinking, obsessions, paranoia, ruminations, logical thoughts, delusions , flights of ideas, hallucinations or having poor insight or judgment. Patient has normal mentation, declines further hospitalization on a voluntary status and meets criteria for discharge today. Patient is encouraged to return to the hospital symptoms worsen or change encouraged to call the unit if she needs to speak to provider for questions regarding medications or care with the assistance of her LONG TERM. LONG TERM did call our unit to confirm medications which were reviewed with charts and signed off on so that they can continue them for her. MENTAL STATUS EXAMINATION ON DISCHARGE: General Appearance: Improved hygiene, appears stated age, hospital scubs/clothing, other (Tattoo R wrist, bruises), improved eye contact, smiling, good hygiene with well-kept King hair, sitting in a chair Build: overweight Demeanor: Less withdrawn and isolative Eye Contact: Improved Activity: Less anxious Behavior: cooperative, pleasant, engaged Speech: clear, slow, low in volume, non-spontaneous, less thought blocking Mood: "Good" Mood Euthymic, smiling, full, appropriate, mood congruent Affect: Mildly dysthymic at times, also smiles and laughs when engaged in conversation, less anxious, mood congruent, appropriate Thought Process: logical/linear Thought Content (Delusions): other (delusions of guilt), fleeting suicidal thoughts Thought Content (Other): coherent, continues to have vague suicidal ideations Thought Content (Aggressive): none reported Perception (Hallucinations): none reported Perception (Other): none reported Cognition (Impairment of): none reported Oriented: A/ox3 Insight: Good Judgment: fair, Improving Psychosis: Denies MEDICATIONS ON DISCHARGE: CSSRS: On discharge: Wish to be : No Nonspecific active suicidal thoughts: No Lifetime attempts: reports multiple, none recent Interrupted attempts: 1, on this admission with capped razor blades Aborted attempts: 0 Preparatory acts or behavior: 1,on this admission with capped razor blades Taking into consideration safety state, status, modifiable non-modifiable risk factors patient is at chronically elevated on discharge for suicide according to the [facility] suicide evaluation. See medication reconciliation PLAN/FOLLOWUP ARRANGEMENTS:Follow Up Care Education Label * Mental Health Appt 1 * Mental Health [facility] * Established With This Provider Yes * Therapist SHERWIN * Date Apr 07, 2021 * Time 12:00 * Address of Clinic or Practice [address] [facility] * Follow Up Care Education Label * Medical * Medical Follow Up [facility] * Established With This Provider Yes * Therapist DR. ZHU * Date Apr 13, 2021 * Time 15:20 * Address of Clinic or Practice [address] [facility] * The amount of time spent in the coordination of care for this patient was approximately 45 minutes. ETOH/Disorder Med Rx ETOH/DRUG DISORDER RX: N/A Vital Signs/I&Os Vital Signs Date Time Temp Pulse Resp B/P (MAP) Pulse Ox O2 Delivery O2 Flow Rate FiO2 04/06/21 09:26 92 169/82 04/06/21 05:48 97.0 20 96 Room Air I&O- Last 24 Hours up to 6 AM 04/06/21 06:00 Intake Total 600 ml Balance 600 ml Medications Scheduled Acetaminophen (Acetaminophen) 325 Mg Tablet, 650 MG PO QHS, (Reported) Amlodipine Besylate (Amlodipine Besylate) 10 Mg Tablet, 5 MG PO BID, (Reported) Amlodipine Besylate (Amlodipine Besylate) 5 Mg Tablet, 5 MG PO BIDWM for htn, #14 Aspirin (Aspirin EC) 81 Mg Tablet.dr, 81 MG PO DAILY for dm, #7 Chlorthalidone (Chlorthalidone) 25 Mg Tablet, 25 MG PO DAILY for htn, #7 Demeclocycline HCl (Demeclocycline HCl) 300 Mg Tablet, 300 MG PO BID, (Reported) Divalproex Sodium (Depakote ER) 250 Mg Tab.er.24h, 250 MG PO DAILY for bipolar, #7 Docusate Sodium (Colace) 100 Mg Capsule, 100 MG PO BID for constipation, #14 Fesoterodine Fumarate (Toviaz) 8 Mg Tab.er.24h, 8 MG PO DAILY, (Reported) Fluticasone Propionate (Flovent Hfa) 44 Mcg/Act Aer.w.adap, 2 PUFF INH RBID for copd, #1 Glyburide (Glyburide) 2.5 Mg Tablet, 2.5 MG PO DAILY@0800 for dm, #7 Guaifenesin (Mucinex) 600 Mg Tab.er.12h, 600 MG PO BID for allergy, #7 Levothyroxine Sodium (Levothyroxine Sodium) 150 Mcg Tablet, 150 MCG PO DAILY@0600 for hyperthyroid, #3 Losartan Potassium (Cozaar) 50 Mg Tablet, 100 MG PO QHS for htn, #14 Metformin HCl (Metformin HCl) 1,000 Mg Tablet, 1,000 MG PO BIDWM for dm, #7 Metoprolol Succinate (Metoprolol Succinate) 100 Mg Tab.er.24h, 100 MG PO DA MARTA@0800 for htn, #7 Multivitamins (Thera M Plus Tablet) 1 Each Tablet, 1 TAB PO DAILY for health, #7 Nystatin (Nystop) 60 Gm Powder, 1 DOSE TOP BID for infection, #7 Oxybutynin Chloride (Ditropan Xl) 5 Mg Tab.er.24, 5 MG PO QHS for glaucoma, #7 Ropinirole HCl (Ropinirole HCl) 1 Mg Tablet, 1 MG PO QHS for restless legs, #7 Sitagliptin (Januvia) 50 Mg Tablet, 100 MG PO DAILY for dm, #7 Sodium Chloride (Sodium Chloride) 1 Gm Tablet, 1 GM PO BIDWM for hyponatremia, #14 Tiotropium [place] Monohydrate (Spiriva) 18 Mcg Cap.w.dev, 1 INHALATION INH DAILY@08 for copd, #1 Ziprasidone HCl (Geodon) 20 Mg Capsule, 60 MG PO BIDWM for bipolar, #42 [Latanoprost 0.005% Op Soln] 50 DROP/2.5 ML SOLN, 1 DROP OU QHS for glaucoma, #7 Scheduled PRN Albuterol Sulfate (Ventolin Hfa) 18 Gm Hfa.aer.ad, 2 PUFF INH Q4HP PRN for SHORTNESS OF BREATH, #1 Hydrocortisone (Proctozone-Hc) 30 Gm Crm.pe.reed, 0 DOSE TOP BID PRN for ITCHING, #1 Lorazepam (Ativan) 0.5 Mg Tablet, 0.5 MG PO Q8HP PRN for SEVERE ANXIETY, #14 Trazodone HCl (Trazodone HCl) 50 Mg Tablet, 50 MG PO QHSP PRN for INSOMNIA, #7 Allergies Coded Allergies: Sulfa (Sulfonamide Antibiotics) (Verified Allergy, Mild, hives, 03/28/21) YAHAIRA KENNEDY MD Apr 06, 2021 15:57
== END 2021-04-06 12:15 | disposition home or self-care (01) | DRG 885 ==
LOC: M ED 07:21 → M ED INP 14:15 → M PSY 16:27
PROVIDERS: ADMIT Student in an Organized Health Care Education/Training Program; ATTEND Student in an Organized Health Care Education/Training Program
DX: F31.30 Bipolar disorder, current episode depressed, mild or moderate severity, unspecified (principal); F40.01 Agoraphobia with panic disorder; Z79.899 Other long term (current) drug therapy; Z88.2 Allergy status to sulfonamides; Z79.82 Long term (current) use of aspirin; E11.9 Type 2 diabetes mellitus without complications; E03.9 Hypothyroidism, unspecified; I10 Essential (primary) hypertension; E78.5 Hyperlipidemia, unspecified; R19.7 Diarrhea, unspecified; L25.9 Unspecified contact dermatitis, unspecified cause